=== PATIENT | female | born 1970 | race Caucasian/White ===

== ENCOUNTER 2017-12-19 09:26 | Emergency (ER) | payer BC ==
--- NOTE | 2017-12-19 12:31 | UC ---
Throat Pain/Nasal Kamlesh HPI - HPI Summary HPI Summary: 47 y/o female with h/o throat pain, getting worse, more severe over past 24 hours, + body ache, no N/V. febrile over weekend, no ear pain. + cough exposed to flu at work. no SOB - History of Current Complaint Chief Complaint: UCRespiratory Stated Complaint: ST Time Seen by Provider: 12/19/17 12:18 Hx Obtained From: Patient Hx Last Menstrual Period: n/a hysterectomy 01/19/16 ?: No Onset/Duration: Gradual Onset, Lasting Days Severity: Moderate - Allergies/Home Medications Allergies/Adverse Reactions: Allergies Allergy/AdvReac Type Severity Reaction Status Date / Time cefuroxime [From Ceftin] Allergy Severe Rash Verified 12/19/17 12:27 Penicillins Allergy Severe GI Upset Verified 12/19/17 12:27 Sulfa (Sulfonamide Allergy Intermediate GI Upset Verified 12/19/17 12:27 Antibiotics) Home Medications: Home Medications Abatacept* [Orencia*] 1 inj WEEKLY 12/19/17 [History Confirmed 12/19/17] Escitalopram Oxalate [Lexapro 20 mg] 20 mg PO DAILY 12/19/17 [History Confirmed 12/19/17] Estradiol TAB(NF) 1 tab DAILY 12/19/17 [History Confirmed 12/19/17] Levothyroxine TAB* [Synthroid 88 MCG TAB*] 88 mcg PO DAILY 12/19/17 [History Confirmed 12/19/17] clonazePAM TAB(*) [Klonopin TAB(*)] 1 mg PO BEDTIME PRN 12/19/17 [History Confirmed 12/19/17] traMADol TAB* [Ultram*] 50 mg PO Q6HR PRN 12/19/17 [History Confirmed 12/19/17] PMH/Surg Hx/FS Hx/Imm Hx Previously Healthy: Yes - Surgical History Surgical History: Yes Surgery Procedure, Year, and Place: Tubal ligation-1992. Hysterectomy 2015 - Family History Known Family History: Positive: Hypertension, Diabetes - Social History Alcohol Use: None Substance Use Type: None Smoking Status (MU): Former Smoker Type: Cigarettes Amount Used/How Often: 1/2 ppd Length of Time of Smoking/Using Tobacco: 5 years When Did the Patient Quit Smoking/Using Tobacco: 2014 Household Exposure Type: Cigarettes Review of Systems Constitutional: Fever, Chills, Fatigue ENT: Sore Throat, Sinus Congestion Respiratory: Cough Is Patient Immunocompromised?: No All Other Systems Reviewed And Are Negative: Yes Physical Exam Triage Information Reviewed: Yes Appearance: Well-Appearing, No Pain Distress, Ill-Appearing - mild Vital Signs Reviewed: Yes Eyes: Positive: Conjunctiva Clear ENT: Positive: Pharyngeal erythema - mild erythema, few exudates seen, TMs normal, Sinus tenderness - mild, Uvula midline. Negative: Nasal drainage, TM bulging, TM dull, TM red, Tonsillar swelling, Tonsillar exudate Neck: Positive: Supple, Tenderness @ - LAD, Enlarged Nodes @ - submand, tender Respiratory: Positive: Chest non-tender, Lungs clear, Normal breath sounds, No respiratory distress, No accessory muscle use. Negative: Crackles, Rhonchi, Stridor, Wheezing Cardiovascular: Positive: RRR, No Murmur, Pulses Normal Abdomen Description: Positive: Nontender, Soft Throat Pain/Nasal Course/Dx - Course Course Of Treatment: rapid flu negative, pharyngitis with possible sinusitis, follow up with PCP within 2-3 days if no improvement. - Differential Dx/Diagnosis Provider Diagnoses: pharyngitis Discharge - Discharge Plan Condition: Good Disposition: HOME Prescriptions: Azithromyxin ILAN (NF) [Z-Ilan (Zithromax) 250 mg tabs #6] 2 tab PO .TODAY, THEN 1 DAILY #6 tab Dextromethorphan/Benzocaine [Cepacol Sorethroat-Cough Bridget] 1 each PO Q4H #60 lozenge Patient Education Materials: Pharyngitis (ED) Referrals: Smiley Rizvi PA [Primary Care Provider] - Additional Instructions: - lozenges for sore throat - ANtibiotics as written - Follow up with primary within 2-3 days if no improvement - Increase fluid intake -
[2017-12-19 12:36] VITALS: BP 123/74
== END 2017-12-19 13:03 | disposition home or self-care (01) ==
LOC: UCCORT 09:26
DX: J02.9 Acute pharyngitis, unspecified (principal); Z87.891 Personal history of nicotine dependence
CPT/HCPCS: 87502; 99212; G0463

== ENCOUNTER 2018-05-08 12:44 | Emergency (ER) | payer BC ==
[2018-05-08 13:07] VITALS: BP 119/74
--- NOTE | 2018-05-08 13:23 | UC ---
Neck Pain HPI - HPI Summary HPI Summary: left side neck pain x 2 day pain is sever , radiating to left shoulder + numbness of left arm no known injury - History of Current Complaint Chief Complaint: UCGeneralIllness Stated Complaint: NECK AND SHOULDER PAIN Time Seen by Provider: 05/08/18 13:02 Hx Obtained From: Patient Hx Last Menstrual Period: n/a hysterectomy 01/19/16 ?: No Mechanism Of Injury: No Known Trauma Timing: Constant Onset/Duration: Gradual Onset, Lasting Days - 2, Still Present Severity: Severe Pain Intensity: 10 Location: Discrete At: - left side of neck Character: Aching, Stiff, Spasmotic Aggravating Factors: Position, Movement Alleviating Factors: Nothing Associated Signs & Symptoms: Positive: Paresthesia - left arm. Negative: Swelling, Redness, Bruising, Fever, Nuchal Rigity, Weakness, Headache - Allergies/Home Medications Allergies/Adverse Reactions: Allergies Allergy/AdvReac Type Severity Reaction Status Date / Time cefuroxime [From Ceftin] Allergy Severe Rash Verified 05/08/18 13:07 Penicillins Allergy Severe GI Upset Verified 05/08/18 13:07 Sulfa (Sulfonamide Allergy Intermediate GI Upset Verified 05/08/18 13:07 Antibiotics) Home Medications: Home Medications celeCOXIB CAP* [CeleBREX CAP*] 200 mg PO DAILY 05/08/18 [History Confirmed 05/08] PMH/Surg Hx/FS Hx/Imm Hx - Additional Past Medical History Additional PMH: RA Endocrine History: Hypothyroidism Psychological History: Anxiety - Surgical History Surgical History: Yes Surgery Procedure, Year, and Place: Tubal ligation-1992. Hysterectomy 2016 - Family History Known Family History: Positive: Hypertension, Diabetes - Social History Alcohol Use: None Substance Use Type: None Smoking Status (MU): Former Smoker Type: Cigarettes Amount Used/How Often: 1/2 ppd Length of Time of Smoking/Using Tobacco: 5 years When Did the Patient Quit Smoking/Using Tobacco: 2014 Household Exposure Type: Cigarettes Review Of Systems Constitutional: Positive: Negative Skin: Positive: Negative Eyes: Positive: Negative ENT: Positive: Negative Respiratory: Positive: Negative Musculoskeletal: Positive: Arthralgia Psychological: Positive: Negative All Other Systems Reviewed And Are Negative: Yes Physical Exam Triage Information Reviewed: Yes Appearance: Well-Appearing, Well-Nourished, Pain Distress Vital Signs: Initial Vital Signs Temp 98.6 F 07/03/18 13:03 Pulse 81 05/08/18 13:03 Resp 18 05/08/18 13:03 BP 119/74 05/08/18 13:03 Pulse Ox 98 05/08/18 13:03 Vital Signs Reviewed: Yes Eyes: Positive: Conjunctiva Clear ENT: Positive: Normal ENT inspection, Hearing grossly normal, Pharynx normal Neck: Positive: Tenderness @ - left side of necck, Other: - limited ROM with rotation Respiratory: Positive: Chest non-tender, Lungs clear, Normal breath sounds Cardiovascular: Positive: RRR, No Murmur, Pulses Normal Skin Exam: Normal Neck Pain Course/Dx - Differential Dx/Diagnosis Provider Diagnoses: Thoracic outlet syndrome Discharge - Sign-Out/Discharge Documenting (check all that apply): Discharge/Admit/Transfer - Discharge Plan Condition: Stable Disposition: HOME Prescriptions: Cyclobenzaprine TAB* [Flexeril 10 MG TAB*] 10 mg PO BID #20 tab predniSONE [Prednisone 20 MG TAB] 20 mg PO BID #10 tablet Patient Education Materials: Thoracic Outlet Syndrome (ED) Referrals: Smiley Rizvi PA [Primary Care Provider] - 7 Days - Billing Disposition and Condition Condition: STABLE Disposition: Home
== END 2018-05-08 13:24 | disposition home or self-care (01) ==
LOC: UCCORT 12:44
DX: G54.0 Brachial plexus disorders (principal); Z88.1 Allergy status to other antibiotic agents; Z88.0 Allergy status to penicillin; Z88.2 Allergy status to sulfonamides; Z87.891 Personal history of nicotine dependence; Z77.22 Contact with and (suspected) exposure to environmental tobacco smoke (acute) (chronic)
CPT/HCPCS: 99212; G0463

== ENCOUNTER 2018-10-11 05:43 | Inpatient (IN) | payer BC ==
[~2018-10-11 05:43] MED LIST: Buffered Lidocaine 0.9% SYRIN* 5 ML/SYR SYRINGE INTRADERM ONE; Vancomycin(*) 1,500 MG in NS 0.9% 250 ML* 250 ML IVPB SCH
--- OUTSIDE RECORDS SUMMARY | 2018-10-11 05:46 | XMS REPORT ---
:1970 External Reference #:[id number] Author Organization [facility] 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 Active Note: noted 1996 Onset: 07/19/2011 Idiopathic peripheral neuropathy Leonardo Decker PA Active Onset: 02/25/2015 Anxiety Smiley Rizvi RPAC Active Note: with panic Onset: 12/29/2015 ESR raised Smiley Rizvi RPAC Active Onset: 06/30/2016 Rheumatoid arthritis Smiley Rizvi RPAC Active Note: seronegative...tx 2015 Onset: 10/05/2016 Chondromalacia of patella Murtaza Nugent M.D. Active Onset: 10/06/2016 [facility] multiple joints Note: cervical spine, knee Onset: 04/17/2017 Adhesive capsulitis of shoulder Prabhu Yoder M.D. Active Note: right Onset: 06/28/2017 Knee pain Prabhu Yoder M.D. Active Onset: 07/11/[address] [facility] Active Onset: 10/02/2017 Knee joint effusion Jennifer Lowe PA Active Onset: 01/16/2018 Arthralgia of the pelvic region and Smiley Rizvi [facility] Active thigh Onset: 01/16/2018 Malaise and fatigue Smiley Rizvi 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[employer] Cigarette Use 12/2014 Quit ETOH Use Rarely consumes alcohol Smoking Patient is a former smoker 1ppd Daily Caffeine Current Caffeine User 1 cup coffee per day Allergies, Adverse Reactions, Alerts Date Description Reaction Status Severity Comments 08/07/2013 Sulfa Antibiotics Nausea and Vomiting active 07/19/2011 Penicillin as a child active nausea/vomiting 07/19/2011 Ceftin RASH active 06/04/2017 Hydroxychloroquine Dyspepsia active 10/19/2017 Adalimumab pruritis active 04/29/2018 Enbrel RASH active Medications Medication Date Status Form Strength Qnty SIG Indications Ordering Provider Work Note 09/03 Active Evaluated for acute gilbert Chen M.Andressa illness. Excuse for 2 days Oxycodone-Acetamin 07/17 Active Tablets 5-325mg 60tab 1 tab by M48.02 Najera, oph s mouth every Gustavo, 6 hours as M.D. needed for severe pain Celebrex 04/26 Active Capsules 200mg 1 cap by Yvonne mouth twice Jianghong a day , Buspirone HCL 04/20 Active Tablets 15mg 60tab take 1/2-1 s tablet by Gustavo mouth three M.D. times a day as needed for stress / anxiety Probiotic (OTC) 01/16 Active Capsules 30cap 1 by mouth s every day Diana Chen Orencia 12/07 Active Soln 125mg/ml SQ weekly Russell Prefill Rupali Taylor MD Escitalopram 07/11 Active Tablets 20mg 90tab 1 tab by Reinaldo, Oxalate s mouth daily Diana Chen Levothyroxine 10/17 Active Tablets 88mcg 90tab 1 by mouth Reinaldo, s every day Diana Chen Clonazepam 01/28 Active Tablets 1mg 30tab 1 tab by Reinaldo, s mouth twice Gustavo, a day as MMercedez needed for anxiety MDD 2 Vitamin C Active Tablets 1000mg 1 by mouth Unknown / every day Biotin Active Tablets 300mcg 1 tab by Unknown / mouth every day Vitamin D Active Capsules 2000Unit 1 by mouth Unknown /0000 every day Azithromycin 09/03 Hx Tablets 250mg 11tab 2 tabs by J01.90 Najera, s mouth Gustavo, - today, then M.DFrank 09/21 one tab by mouth daily Tramadol HCL 06/04 Hx Tablets 50mg 10tab 1 tablet by Ilya, s mouth every Gabby, - 24 hours as 07/17 needed pain Work Note 03/05 Hx may return Najera to a normal Gustavo - work M.D. 04/10 schedule, no restriction s Azithromycin 02/28 Hx Tablets 250mg 11tab 2 tabs by J20.9 Najera, s mouth Gustavo, - today, then M.D. 03/11 one tab by mouth daily Work Note 02/12 Hx Work Najera limitation. Gustavo - .. 35 M.D. 03/05 hours per week (7 hours per day) Apple Cider 01/16 Hx Tablets 450mg. 1 capsule Reinaldo Vinegar daily. Alvin Chen M.D. 04/10 Estradiol 01/16 Hx Tablets 2mg 90tab 1 by mouth N95.1 Reinaldo, s every day Alvin Chen M.D. 01/16 Estrace 01/16 Hx Tablets 2mg 90tab 1 tab by Reinaldo, s mouth every Gustavo, - day M.D. 04/10 Meloxicam 01/12 Hx Tablets 7.5mg 1 tablet by Yvonne, mouth bid Rupali Esquivel MD 04/29 Enbrel 11/06 Hx 50mg SQ Yvonne, weekly Rupali Esquivel MD 01/14 Azithromycin 11/01 Hx Tablets 250mg 11tab 2 tabs by J20.9 Reinaldo, s mouth Gustavo, - today, then M.D. 11/22 one tab by mouth daily Fayette 10/02 Hx Tablets 5-325mg 20tab 1 by mouth Paresh, s every 6 Prabhu, - hour as M.D. 10/19 needed pain Tramadol HCL 09/08 Hx Tablets 50mg 60tab 1-2 by Reinaldo, s mouth every Gustavo, - 6 hours as M.D. 06/14 needed pain :::: Reference #: [id number] Oxycodone HCL 09/01 Hx Tablets 10mg 30tab 1 by mouth Paresh, s every 4-6 Prabhu, hour as M.D. needed postop pain Estradiol 07/17 Hx Tablets 1mg 90tab 1 by mouth N95.1 Reinaldo, s every day Alvin ChenDFrank 01/16 Humira Pen 07/07 Hx PNKT 40mg/0.8M 40mg SQ q Yvonen L 2 wks, Rupali wilson MD 10/19 benadryl prior to injection due to flushing Estradiol 06/15 Hx Tablets 0.5mg 90tab 1 by mouth N95.1 Reinaldo, s every day Alvin Chen M.DFrank 07/17 Leflunomide 05/05 Hx Tablets 20mg 1 cap by Yvonne, mouth every Rupali polanco MD Zolpidem Tartrate 04/17 Hx Tablets 5mg 30tab 1 QHS prn Paresh, s Sleep Alvin Pelletier M.D. 05/25 Oxycodone HCL 03/22 Hx Tablets 5mg 40tab 1-2 every Paresh, s 4-6 hour as Prabhu, needed for M.D. pain Hydrocodone-Acetam 03/02 Hx Tablets 5-325mg 30tab 1 by mouth antelmo Nugent s every 6 Murtaza, - hours as M.D. 04/04 needed pain Hydroxychloroquine 01/27 Hx Tablets 200mg 1 by mouth Marlo Russell twice a day Rupali Esquivel MD 02/14 Duloxetine HCL 01/16 Hx Caps 60mg 60cap 1 cap by Lily7 Reinaldo, Part s mouth once jocelyn Chen M.D. day...taper ing 05/25/17 Diclofenac Sodium 01/16 Hx Gel 1% 100gm Apply 2 to M79.7 Reinlado, 4 grams to Gustavo, - affected M.D. 05/10 area times a day as needed Celecoxib 10/13 Hx Capsules 200mg 30cap take one M47.812 Estrada s capsule by Marbin Anderson, - mouth every DO 02/14 evening as needed for pain Metaxalone 10/13 Hx Tablets 800mg 60tab 1 tab by M62.838 Estrada, s mouth every Marbin Anderson, - 6-8 hour DO 05/10 for muscle /2016 spasm Methotrexate 09/07 Hx Tablets 2.5mg 8 tabs by Tomer, mouth per Isaac melo MD 03/01 Prednisone 09/07 Hx Tablets 5mg taper Tomer, Isaac Esquivel MD 10/05 Azithromycin 02/21 Hx Tablets 250mg 11tab 2 tabs by J20.9 Estrada, s mouth today Marbin Anderson, - then one DO 04/28 tab by mouth daily Cheratussin ac 02/21 Hx Syrup 100-10mg/ 236ml 1-2 J20.9 Estrada, 5ML teaspoons Marbin Anderson, - by mouth DO 04/28 every hour as needed cough Ibuprofen 11/23 Hx Tablets 800mg 1 by mouth every 8 - hours as 06/07 needed for pain Diclofenac Sodium 09/22 Hx Tablets 75mg 60tab take one M70.62 Estrada, s tablet by Marbin Anderson, - mouth twice DO 12/22 a day with food for joint pain Glucosamine 09/18 Hx Tablets 1000/800m Yahaira Dorado g Marbin Anderson, Complex Advanced - DO Plus MSM 12/22 Order 07/31 Hx Please Estrada allow Marbin Anderson, - smaller DO 08/04 nursing bag due to back and neck complaints Nabumetone 07/31 Hx Tablets 750mg 60tab take 2 M70.62 Estrada s tablets by Marbin Anderson, - mouth every DO 09/22 day with food for hip discomfort Azithromycin 06/19 Hx Tablets 250mg 11tab 2 tabs by 461.9 Estrada s mouth today Marbin Anderson, - then one DO 07/31 tab by mouth daily Gabapentin 05/26 Hx Capsules 100mg 60cap take 1 to 2 729.2 Estrada s capsules by Marbin Anderson, - mouth at DO 06/19 bedtime for hip pain Levothyroxine 04/26 Hx Tablets 100mcg 90tab 1 tab by Estrada s mouth every Marbin Anderson, - day DO 10/17 Buspirone HCL 01/13 Hx Tablets 5mg 30tab 2 tabs by Yasir s mouth bid Andras, - for anxiety M.D. 04/20 as needed Hydroxyzine HCL 12/25 Hx Tablets 50mg 30tab take 1 Kristie s tablet by Edith - amanda shrestha MD 03/02 night at bedtime as needed insomnia Clonazepam 12/25 Hx Tablets 1mg 30tab 1 tab by Estrada s mouth twice Marbin Anderson, - a day as DO 12/28 needed for anxiety Omeprazole 12/25 Hx Capsules 20mg 1 by mouth Kristie every day Edith Esquivel MD 12/22 Ondansetron HCL 12/23 Hx Tablets 4mg 10tab 1 tab every s 6hr as - needed 02/25 Ventolin HFA 01/16 Hx Aerosol 108mcg/Ac 36uni 1-2 puffs q Kristie t ts 4-6 hours Edith quispe MD 02/25 Sumatriptan 08/02 Hx Tablets 50mg 6tabs 1 tab by Kristie mouth prn Edith dozier MD 02/25 dose 2 hours later Levothyroxine 07/19 Hx Tablets 112mcg 90tab take one Kristie Sodium s tablet by Edith patel every MD Escitalopram 06/10 Hx Tablets 20mg 90tab one by Rosa Dorado s mouth daily Marbin Anderson, - DO 02/14 Probiotic Hx Capsules by mouth Unknown /0000 every day - 05/30 Fiber Hx Capsules 0.52gm by mouth Unknown /0000 every day - 06/19 Iron Hx Tablets 325(65Fe) 1 by mouth Unknown /0000 mg every day - 05/30 Meloxicam Hx Tablets 7.5mg take one- M25.511 Unknown /0000 two tablets - by mouth 06/30 as needed Folic Acid 00 Hx 1mg 1 tab daily Unknown /0000 - 04/17 Tylenol 8 Hour Hx 2 tabs by Unknown Arthritis Pain /0000 mouth as - needed 10/19 [employer] / Hx daily Unknown /0000 - 06/28 Diclofenac Sodium Hx Tablets 50mg take 1 M25.511 Tomer, /0000 tablet by Isaac patel tikat RAYMUNDO 07/29 Mobic Hx Tablets 15mg 1 by mouth M47.812 Unknown /0000 qhs - 10/13 Leflunomide Hx Tablets 20mg 1 by mouth Unknown /0000 every day - 04/04 Hydroxychloroquine 00 Hx Tablets 200mg Unknown Sulfate / - 03/15 Methotrexate / Hx Tablets 2.5mg Unknown / - 03/15 Meloxicam Hx Tablets 7.5mg Unknown / - 03/15 Escitalopram Hx Tablets 20mg Unknown Oxalate / - 03/15 Afluria Hx Christine 0.5ml Unknown Preservative Free / - 04/04 Levothyroxine 00/ Hx Tablets 100mcg Unknown Sodium / - 03/15 Diclofenac Sodium Hx Tablets 50mg Unknown /0000 DR - 03/15 Cyclobenzaprine 00/00 Hx Tablets 10mg Unknown HCL / - 03/15 Naproxen 00/00 Hx Tablets 500mg take 1 Unknown /0000 tablet by - mouth twice 03/15 a day if /2017 needed for pain Methotrexate 00/00 Hx Tablets 2.5mg Unknown / - 04/17 Hydroxychloroquine 00/00 Hx Tablets 200mg Unknown Sulfate / - 04/17 Celecoxib 00/00 Hx Capsules 200mg Unknown - 04/17 Meloxicam 00/00 Hx Tablets 7.5mg Unknown / - 04/17 Escitalopram 00/00 Hx Tablets 20mg Unknown Oxalate / - 04/17 Afluria Hx Christine 0.5ml Unknown Preservative Free /05/10 Levothyroxine 00/00 Hx Tablets 100mcg Unknown Sodium / - 04/17 Diclofenac Sodium 00/00 Hx Tablets 50mg Unknown /0000 DR - 04/17 Cyclobenzaprine 00/00 Hx Tablets 10mg Unknown HCL / - 04/17 Folic Acid 00 Hx Tablets 1mg Jeff, /0000 Isaac Esquivel MD 05/10 Hydroxychloroquine 00/00 Hx Tablets 200mg Unknown Sulfate /05/10 Methotrexate /00 Hx Tablets 2.5mg Unknown 05/10 Celecoxib 00/ Hx Capsules 200mg Unknown 05/10 Meloxicam 00/00 Hx Tablets 7.5mg Unknown 05/10 Escitalopram 00/00 Hx Tablets 20mg Unknown Oxalate /05/10 Levothyroxine 00/00 Hx Tablets 100mcg Unknown Sodium /05/10 Diclofenac Sodium 00/00 Hx Tablets 50mg take 1 Unknown /0000 DR tablet by - mouth three 05/10 times a day /2016 Cyclobenzaprine 00/00 Hx Tablets 10mg take 1 Unknown HCL /0000 tablet by - mouth 05/10 Nightly /2016 Ambien 00/00 Hx Tablets 5mg take one Unknown /0000 tab by mouth at night as needed as needed insomnia Vitamin E 00/ Hx Capsules 1 tab by Unknown /0000 mouth once - daily 10/19 Milk Thistle / Hx Capsules Unknown / - 01/16 Prednisone 00/00 Hx Tablets 20mg Zarrini, /0000 Gio, - 05/24 Cyclobenzaprine Hx Tablets 10mg 30tab 1 by mouth Zarrini, HCL /0000 s three times Gio, - a day as 06/01 muscle spasms Medications Administered in Office Medication Date Status Form Strength Qnty SIG Indications Ordering Provider Euflexxa 2mL 11/02 Administered Injection Mynor, prefilled syringe WENCESLAO Rodriguez Euflexxa 2mL 10/26 Administered Injection Mynor, prefilled syringe JenniferWENCESLAO spivey Euflexxa 2mL 10/19 Administered Injection Mynor, prefilled syringe WENCESLAO Rodriguez Methylprednisolone 10/02 Administered Injection Mynor acetate WENCESLAO Rodriguez (Depomedrol) 80mg injection Depo-Medrol 20mg 06/28 Administered Injection Paresh Diana Pelletier Methylprednisolone 07/29 Administered Injection Alyssa acetate Mita (Depomedrol) 80mg S., RPAC injection Methylprednisolone 06/08 Administered Injection Shah, acetate Mita (Depomedrol) 80mg S., RPAC injection Immunizations CPT Code Status Date Vaccine Lot # [id number] Given 07/31/2015 Influenza Vaccine (Fluzone) Age 3 And Older [id number] Given 08/07/2013 flu vaccination [id number] Given 11/15/2009 DTaP Vaccine Younger Than 7 Vital Signs Date Vital Result Comment 09/21/2018 BP Systolic 137 mmHg BP Diastolic 75 mmHg Body Temperature 96.9 F Heart Rate 65 /min Respiratory Rate 18 /min Weight 214.25 lb O2 % BldC Oximetry 96 % 09/03/2018 BP Systolic 113 mmHg BP Diastolic 77 mmHg Body Temperature 97.5 F Heart Rate 73 /min Respiratory Rate 18 /min Weight 213.25 lb O2 % BldC Oximetry 97 % 07/17/2018 BP Systolic 128 mmHg BP Diastolic 74 mmHg Heart Rate 69 /min Respiratory Rate 18 /min Weight 211.38 lb O2 % BldC Oximetry 97 % %A Pain Level 8 neck 06/19/2018 BP Systolic Sitting Right Arm 113 mmHg BP Diastolic Sitting Right Arm 77 mmHg Body Temperature 97.7 F Heart Rate 96 /min Respiratory Rate 16 /min Height 67 inches 5'7" Weight 209.00 lb BMI (Body Mass Index) 32.7 kg/m2 BSA (Body Surface Area) 2.06 m2 Sieper body weight in kilograms 61 O2 % BldC Oximetry 98 % Ra 06/14/2018 BP Systolic Sitting Left Arm 126 mmHg BP Diastolic Sitting Left Arm 78 mmHg Body Temperature 97.3 F Height 67 inches 5'7" Weight 209.00 lb BMI (Body Mass Index) 32.7 kg/m2 BSA (Body Surface Area) 2.06 m2 Sieper body weight in kilograms 61 06/01/2018 BP Systolic Sitting Left Arm 104 mmHg BP Diastolic Sitting Left Arm 71 mmHg Body Temperature 97.6 F Heart Rate 85 /min Respiratory Rate 17 /min Height 67 inches 5'7" Weight 211.00 lb BMI (Body Mass Index) 33.0 kg/m2 BSA (Body Surface Area) 2.07 m2 Sieper body weight in kilograms 61 O2 % BldC Oximetry 97 % 05/24/2018 BP Systolic Sitting Left Arm 119 mmHg BP Diastolic Sitting Left Arm 87 mmHg Body Temperature 97.5 F Heart Rate 95 /min Respiratory Rate 17 /min Height 67 inches 5'7" Weight 206.00 lb BMI (Body Mass Index) 32.3 kg/m2 BSA (Body Surface Area) 2.05 m2 Sieper body weight in kilograms 61 O2 % BldC Oximetry 98 % 05/10/2018 BP Systolic Sitting Left Arm 103 mmHg BP Diastolic Sitting Left Arm 73 mmHg Body Temperature 98.0 F Heart Rate 74 /min Respiratory Rate 17 /min Height 67 inches 5'7" Weight 206.00 lb BMI (Body Mass Index) 32.3 kg/m2 BSA (Body Surface Area) 2.05 m2 Sieper body weight in kilograms 61 O2 % BldC Oximetry 97 % 04/10/2018 BP Systolic Sitting Right Arm 102 mmHg BP Diastolic Sitting Right Arm 68 mmHg Body Temperature 97.0 F Heart Rate 66 /min reg Respiratory Rate 20 /min Height 67 inches 5'7" Weight 202.00 lb BMI (Body Mass Index) 31.6 kg/m2 BSA (Body Surface Area) 2.03 m2 Sieper body weight in kilograms 61 O2 % BldC Oximetry 98 % ra 01/16/2018 BP Systolic Sitting Left Arm 102 mmHg BP Diastolic Sitting Left Arm 58 mmHg Heart Rate 75 /min Height 67 inches 5'7" Weight 204.00 lb BMI (Body Mass Index) 31.9 kg/m2 BSA (Body Surface Area) 2.04 m2 Sieper body weight in kilograms 61 O2 % BldC Oximetry 98 % ra 11/02/2017 BP Systolic Sitting Right Arm 102 mmHg BP Diastolic Sitting Right Arm 70 mmHg Heart Rate 81 /min Height 67 inches 5'7" Weight 202.00 lb BMI (Body Mass Index) 31.6 kg/m2 BSA (Body Surface Area) 2.03 m2 Sieper body weight in kilograms 61 11/01/2017 BP Systolic Sitting Right Arm 102 mmHg BP Diastolic Sitting Right Arm 64 mmHg Body Temperature 96.6 F Heart Rate 77 /min Height 67 inches 5'7" Weight 202.00 lb BMI (Body Mass Index) 31.6 kg/m2 BSA (Body Surface Area) 2.03 m2 Sieper body weight in kilograms 61 O2 % BldC Oximetry 98 % ra 10/26/2017 BP Systolic Sitting Left Arm 114 mmHg BP Diastolic Sitting Left Arm 73 mmHg Body Temperature 97.4 F Heart Rate 81 /min Respiratory Rate 20 /min Height 67 inches 5'7" Weight 200.00 lb BMI (Body Mass Index) 31.3 kg/m2 BSA (Body Surface Area) 2.02 m2 Sieper body weight in kilograms 61 10/16/2017 BP Systolic 110 mmHg BP Diastolic 72 mmHg Heart Rate 82 /min 09/14/2017 BP Systolic Sitting Right Arm 113 mmHg BP Diastolic Sitting Right Arm 73 mmHg Body Temperature 98.0 F Heart Rate 86 /min Weight 197.00 lb 07/17/2017 BP Systolic Sitting Left Arm 110 mmHg BP Diastolic Sitting Left Arm 68 mmHg Heart Rate 66 /min Weight 192.00 lb O2 % BldC Oximetry 98 % 06/28/2017 BP Systolic Sitting Left Arm 102 mmHg BP Diastolic Sitting Left Arm 72 mmHg Heart Rate 87 /min 06/15/2017 BP Systolic Sitting Left Arm 110 mmHg BP Diastolic Sitting Left Arm 76 mmHg Body Temperature 96.7 F Heart Rate 70 /min Respiratory Rate 16 /min Height 67.5 inches 5'7.50" Weight 191.00 lb BMI (Body Mass Index) 29.5 kg/m2 BSA (Body Surface Area) 1.99 m2 Sieper body weight in kilograms 62 O2 % BldC Oximetry 98 % 05/24/2017 BP Systolic Sitting Right Arm 105 mmHg BP Diastolic Sitting Right Arm 71 mmHg Heart Rate 72 /min Height 67.5 inches 5'7.50" Weight 190.00 lb BMI (Body Mass Index) 29.3 kg/m2 BSA (Body Surface Area) 1.99 m2 Sieper body weight in kilograms 62 05/10/2017 BP Systolic Sitting Right Arm 113 mmHg BP Diastolic Sitting Right Arm 74 mmHg Heart Rate 79 /min Height 6.5 inches 0'6.50" Weight 190.00 lb BMI (Body Mass Index) 3161.4 kg/m2 BSA (Body Surface Area) 0.36 m2 Sieper body weight in kilograms 45 04/04/2017 BP Systolic Sitting Right Arm 124 mmHg BP Diastolic Sitting Right Arm 68 mmHg Height 66.5 inches 5'6.50" Weight 189.25 lb BMI (Body Mass Index) 30.1 kg/m2 BSA (Body Surface Area) 1.96 m2 Sieper body weight in kilograms 60 03/15/2017 BP Systolic 101 mmHg BP Diastolic 67 mmHg Body Temperature 95.3 F Heart Rate 74 /min Height 66.5 inches 5'6.50" Weight 191.00 lb BMI (Body Mass Index) 30.4 kg/m2 BSA (Body Surface Area) 1.97 m2 Sieper body weight in kilograms 60 03/02/2017 BP Systolic Sitting Left Arm 114 mmHg BP Diastolic Sitting Left Arm 78 mmHg Height 67.5 inches 5'7.50" Weight 200.00 lb BMI (Body Mass Index) 30.9 kg/m2 BSA (Body Surface Area) 2.03 m2 Sieper body weight in kilograms 62 01/16/2017 BP Systolic Sitting Right Arm 122 mmHg BP Diastolic Sitting Right Arm 72 mmHg Height 67.50 inches 5'7.50" Weight 201.00 lb BMI (Body Mass Index) 31.0 kg/m2 BSA (Body Surface Area) 2.04 m2 12/16/2016 BP Systolic Sitting Right Arm 122 mmHg BP Diastolic Sitting Right Arm 66 mmHg Height 67.50 inches 5'7.50" Weight 198.25 lb BMI (Body Mass Index) 30.6 kg/m2 BSA (Body Surface Area) 2.03 m2 10/13/2016 BP Systolic Sitting Right Arm 124 mmHg BP Diastolic Sitting Right Arm 70 mmHg Height 67.50 inches 5'7.50" Weight 202.25 lb BMI (Body Mass Index) 31.2 kg/m2 BSA (Body Surface Area) 2.04 m2 06/08/2016 BP Systolic 107 mmHg BP Diastolic 70 mmHg Heart Rate 78 /min Height 67.50 inches 5'7.50" Weight 205.00 lb BMI (Body Mass Index) 31.6 kg/m2 BSA (Body Surface Area) 2.05 m2 Sieper body weight in kilograms 62 05/30/2016 BP Systolic 120 mmHg BP Diastolic 72 mmHg Height 69 inches 5'9" Weight 207.50 lb BMI (Body Mass Index) 30.6 kg/m2 BSA (Body Surface Area) 2.10 m2 02/22/2016 BP Systolic 110 mmHg BP Diastolic 70 mmHg Body Temperature 97.8 F Heart Rate 82 /min Respiratory Rate 16 /min Height 69 inches 5'9" Weight 198.00 lb BMI (Body Mass Index) 29.2 kg/m2 BSA (Body Surface Area) 2.06 m2 O2 % BldC Oximetry 98 % 12/22/2015 BP Systolic Sitting Left Arm 130 mmHg BP Diastolic Sitting Left Arm 70 mmHg Body Temperature 98.7 F Heart Rate 108 /min Height 69 inches 5'9" Weight 196.50 lb BMI (Body Mass Index) 29.0 kg/m2 BSA (Body Surface Area) 2.05 m2 O2 % BldC Oximetry 94 % 09/18/2015 BP Systolic 124 mmHg BP Diastolic 68 mmHg Weight 190.00 lb 07/31/2015 BP Systolic 110 mmHg BP Diastolic 68 mmHg Weight 186.38 lb 06/19/2015 Body Temperature 97.3 F 06/19/2015 BP Systolic 102 mmHg BP Diastolic 68 mmHg Height 68 inches 5'8" Weight 177.12 lb BMI (Body Mass Index) 26.9 kg/m2 BSA (Body Surface Area) 1.94 m2 05/26/2015 BP Systolic 98 mmHg BP Diastolic 58 mmHg Heart Rate 79 /min Height 68 inches 5'8" Weight 179.00 lb BMI (Body Mass Index) 27.2 kg/m2 BSA (Body Surface Area) 1.95 m2 O2 % BldC Oximetry 98 % 03/02/2015 Heart Rate 82 /min Height 68 inches 5'8" Weight 170.00 lb BMI (Body Mass Index) 25.8 kg/m2 BSA (Body Surface Area) 1.91 m2 01/13/2015 BP Systolic 118 mmHg BP Diastolic 68 mmHg Heart Rate 68 /min Height 67.5 inches 5'7.50" Weight 160.00 lb 12/25/2014 BP Systolic 132 mmHg BP Diastolic 80 mmHg Height 67.5 inches 5'7.50" Weight 137.00 lb 10/14/2014 BP Systolic 110 mmHg BP Diastolic 60 mmHg Body Temperature 98.4 F Heart Rate 84 /min Height 67.5 inches 5'7.50" Weight 163.00 lb 10/06/2014 BP Systolic 118 mmHg BP Diastolic 66 mmHg Body Temperature 97.7 F Height 67.5 inches 5'7.50" Weight 162.00 lb 06/05/2014 BP Systolic 100 mmHg BP Diastolic 70 mmHg Heart Rate 88 /min Height 67.5 inches 5'7.50" Weight 163.00 lb 01/16/2014 BP Systolic 120 mmHg BP Diastolic 78 mmHg Body Temperature 99.3 F Heart Rate 80 /min Height 67.5 inches 5'7.50" Weight 160.00 lb 08/07/2013 BP Systolic 118 mmHg BP Diastolic 72 mmHg Height 67.5 inches 5'7.50" Weight 161.00 lb 07/23/2013 BP Systolic 118 mmHg BP Diastolic 70 mmHg Height 67 inches 5'7" Weight 159.00 lb 01/21/2013 BP Systolic 118 mmHg BP Diastolic 76 mmHg Body Temperature 99.0 F Height 67.5 inches 5'7.50" Weight 166.00 lb 05/21/2012 BP Systolic 118 mmHg BP Diastolic 70 mmHg Body Temperature 98.4 F Height 68 inches 5'8" Weight 165.00 lb 05/14/2012 BP Systolic 118 mmHg BP Diastolic 72 mmHg Body Temperature 98.2 F Height 68 inches 5'8" Weight 159.00 lb 04/04/2012 BP Systolic 118 mmHg BP Diastolic 72 mmHg Height 68 inches 5'8" Weight 161.00 lb 02/08/2012 BP Systolic 110 mmHg BP Diastolic 64 mmHg Body Temperature 100.0 F Height 67 inches 5'7" Weight 161.00 lb O2 % BldC Oximetry 98 % on rm air 09/02/2011 BP Systolic 112 mmHg BP Diastolic 68 mmHg 09/02/2011 BP Systolic 112 mmHg BP Diastolic 68 mmHg Body Temperature 97.4 F Height 67 inches 5'7" Weight 158.00 lb 07/19/2011 BP Systolic 104 mmHg BP Diastolic 68 mmHg Heart Rate 74 /min Height 67 inches 5'7" Weight 159.00 lb Results Test Date Test Result H/L Range Note CBS W/Automated Diff 06/06/2018 White Blood Count 6.2 K/uL 3.1-10.7 1 Red Blood Count 5.10 M/uL 3.90-5.40 1 Hemoglobin 13.8 gm/dL 11.6-15.8 1 Hematocrit 41.8 % 36.0-46.1 1 Mean Cell Volume 82.0 fl 80.9-99.0 1 Mean Corpuscular HGB 27.1 pg 25.9-32.7 1 Mean Corpuscular HGB Conc 33.0 g/dL 30.8-34.3 1 Platelet Count 320 K/uL 155-360 1 Red Cell Distri Width SD 43.1 fl 3-47 1 Red Cell Distri Width %CV 14.6 % High 11.7-14.4 1 Mean Platelet Volume 10.4 fL 8.9-12.4 1 Neut% 53.0 % 40.4-72.8 1 Lymph % 38.0 % 20.0-42.0 1 [place] % 7.1 % 4.3-13.2 1 Eo% 1.6 % 0.0-6.6 1 Bas% 0.3 % 0.0-1.1 1 Neut# 3.30 K/uL 1.8-7.0 1 Lymph # 2.37 K/uL 1.0-4.0 1 [place] # 0.44 K/uL 0.3-0.9 1 Eos # 0.10 K/uL 0.0-0.5 1 Baso # 0.02 K/uL 0.0-0.1 1 Laboratory test finding 06/06/2018 C-Reactive Protein,Quant 18.4 mg/L High <3.0 1 Sedimentation Rate 34 mm/hr High 0-20 1, 2 [facility] Comprehensive 01/31/2018 Ebv Capsid Ag IgG Ab Positive Negative Ebv Capsid Ag IgM Ab Equivocal Negative [facility] Nuclear Antigen Positive Negative [facility] Virus Interp See Comment 3 Rapid Influenza A & B 12/19/2017 Influenza A Molecular NEGATIVE Negative 4 Molecular Influenza B Molecular NEGATIVE Negative TSH Reflex FT4 And/Or FT3 11/01/2017 Thyroid Stim Hormone 2.43 uIU/mL 0.30-4.20 5 Reflex add FT3? Y 5 Reflex add FT4? Y 5 Comprehensive Metabolic Panel 11/01/2017 Glucose 99 mg/dL 74-106 5 BUN 11 mg/dL 7-18 5 Creatinine 0.8 mg/dL 0.6-1.3 5 Glom Filtration Rate, Estimate >60 mL/min >60 5 If >60 mL/min >60 5, 6 BUN/Creat 13.7 ratio 5 Sodium 138 mmol/L 136-145 5 Potassium 4.5 mmol/L 3.5-5.1 5 Chloride 105 mmol/L 98-107 5 Carbon Dioxide 26 mmol/L 21-32 5 Anion Gap 7 mEq/L Low 8-16 5 Calcium 9.1 mg/dL 8.5-10.1 5 Total Protein 7.7 g/dL 6.4-8.2 5 Albumin 3.7 g/dL 3.4-5.0 5 Globulin 4.0 g/dL 1.9-4.3 5 Alb/Glob 0.9 ratio 5 Bilirubin,Total 0.3 mg/dL 0.2-1.0 5 Sgot/Ast 12 U/L Low 15-37 5, 7 SGPT/Alt 15 U/L 12-78 5 Alkaline Phosphatase 77 U/L 45-117 5 Reflex add FT3? Y 5 Reflex add FT4? Y 5 CBS W/Automated Diff 11/01/2017 White Blood Count 5.2 K/uL 3.1-10.7 5 Red Blood Count 5.06 M/uL 3.90-5.40 5 Hemoglobin 13.9 gm/dL 11.6-15.8 5 Hematocrit 42.2 % 36.0-46.1 5 Mean Cell Volume 83.4 fl 80.9-99.0 5 Mean Corpuscular HGB 27.5 pg 25.9-32.7 5 Mean Corpuscular HGB Conc 32.9 g/dL 30.8-34.3 5 Platelet Count 251 K/uL 155-360 5 Red Cell Distri Width SD 43.1 fl 3-47 5 Red Cell Distri Width %CV 14.4 % 11.7-14.4 5 Mean Platelet Volume 11.8 fL 8.9-12.4 5 Neut% 55.7 % 40.4-72.8 5 Lymph % 33.1 % 20.0-42.0 5 [place] % 8.1 % 4.3-13.2 5 Eo% 2.5 % 0.0-6.6 5 Bas% 0.6 % 0.0-1.1 5 Neut# 2.87 K/uL 1.8-7.0 5 Lymph # 1.71 K/uL 1.0-4.0 5 [place] # 0.42 K/uL 0.3-0.9 5 Eos # 0.13 K/uL 0.0-0.5 5 Baso # 0.03 K/uL 0.0-0.1 5 Laboratory test finding 04/04/2017 FSH 73.9 mIU/mL 8, 9 CBS W/Automated Diff 04/04/2017 White Blood Count 6.0 K/uL 3.1-10.7 8 Red Blood Count 4.79 M/uL 3.90-5.40 8 Hemoglobin 13.3 gm/dL 11.6-15.8 8 Hematocrit 40.6 % 36.0-46.1 8 Mean Cell Volume 84.8 fl 80.9-99.0 8 Mean Corpuscular HGB 27.8 pg 25.9-32.7 8 Mean Corpuscular HGB Conc 32.8 g/dL 30.8-34.3 8 Platelet Count 264 K/uL 150-400 8 Red Cell Distri Width SD 45.3 fl 3-47 8 Red Cell Distri Width %CV 14.9 % High 11.7-14.4 8 Mean Platelet Volume 11.4 fL 8.9-12.4 8 Neut% 58.1 % 40.4-72.8 8 Lymph % 29.0 % 20.0-42.0 8 [place] % 11.3 % 4.3-13.2 8 Eo% 1.3 % 0.0-6.6 8 Bas% 0.3 % 0.0-1.1 8 Neut# 3.48 K/uL 1.8-7.0 8 Lymph # 1.74 K/uL 1.0-4.0 8 [place] # 0.68 K/uL 0.3-0.9 8 Eos # 0.08 K/uL 0.0-0.5 8 Baso # 0.02 K/uL 0.0-0.1 8 Laboratory test finding 12/16/2016 Thyroid Stim Hormone 0.70 uIU/mL 0.30- 4.20 10 TSH Reflex FT4 And/Or 10/13/2016 Thyroid Stim Hormone 0.13 uIU/mL Low 0.30 -4.20 FT3 Reflex add FT3? Y Reflex add FT4? Y Free T3 10/13/2016 Free T3 2.88 pg/mL 2.18-3.98 Reflex add FT3? Y Reflex add FT4? Y Free T4 10/13/2016 Free T4 1.33 ng/dL 0.76-1.46 Reflex add FT3? Y Reflex add FT4? Y CBC 01/20/2016 White Blood Count 8.7 K/uL 3.1-10.7 Red Blood Count 4.23 M/uL 3.90-5.40 Hemoglobin 11.0 gm/dL Low 11.6-15.8 Hematocrit 34.5 % Low 36.0-46.1 Mean Cell Volume 81.6 fl 80.9-99.0 Mean Corpuscular HGB 26.0 pg 25.9-32.7 Mean Corpuscular HGB Conc 31.9 g/dL 30.8-34.3 Platelet Count 222 K/uL 155-360 Red Cell Distri Width %CV 14.9 % High 11.7-14.4 Mean Platelet Volume 10.2 fL 8.9-12.4 Laboratory test 01/19/2016 Uterus W/Wo See Note 11 finding FT/Ovary-Fibroid Laboratory test 01/19/2016 HCG, Quant 1.0 mIU/mL 12 finding Laboratory test 01/13/2016 TSH Reflex FT4 and/or FT3 1.45 uIU/mL 0.36- 3.74 13 finding Laboratory test 12/02/2015 Urine HCG (Qualitative) NEGATIVE Negative 14 finding Laboratory test 09/18/2015 C-Reactive Protein,Quant 11.2 mg/L High <3.0 finding Lyme Igg & Igm By 09/18/2015 Lyme AB Igg By Western . Western Blot Blot P93 AB Absent . P66 AB Absent . P58 AB Absent . P45 AB Absent . P41 AB Absent . P39 AB Absent . P30 AB Absent . P28 AB Absent . P23 AB Absent . P18 AB Absent . Lyme Igg WB Interpretation Negative . 15 Lyme AB Igm By Western Blot . P41 AB Present High . P39 AB Absent . P23 AB Absent . Lyme Igm WB Interpretation Negative . 16 CBC W/Automated Diff 09/18/2015 White Blood Count 7.1 K/uL 3.1-10.7 Red Blood Count 4.31 M/uL 3.90-5.40 Hemoglobin 12.2 gm/dL 11.6-15.8 Hematocrit 37.3 % 36.0-46.1 Mean Cell Volume 86.5 fl 80.9-99.0 Mean Corpuscular HGB 28.3 pg 25.9-32.7 Mean Corpuscular HGB Conc 32.7 g/dL 30.8-34.3 Platelet Count 281 K/uL 155-360 Red Cell Distri Width SD 44.0 fl 3-47 Red Cell Distri Width %CV 14.2 % 11.7-14.4 Mean Platelet Volume 10.7 fL 8.9-12.4 Neut% 58.3 % 40.4-72.8 Lymph % 33.7 % 17.0-46.1 [place] % 6.1 % 4.3-13.2 Eo% 1.3 % 0.0-6.6 Bas% 0.6 % 0.0-1.1 Neut# 4.14 K/uL 1.0-7.0 Lymph # 2.39 K/uL 1.8-7.0 [place] # 0.43 K/uL 0.3-0.9 Eos # 0.09 K/uL 0.0-0.5 Baso # 0.04 K/uL 0.0-0.1 Laboratory test finding 09/18/2015 Uric Acid 3.4 mg/dL 2.6-6.0 Calcium 9.2 mg/dL 8.5-10.1 Total Protein 7.6 g/dL 6.4-8.2 Albumin 4.0 g/dL 3.4-5.0 Globulin 3.6 g/dL 1.9-4.3 Alb/Glob 1.1 ratio Alkaline Phosphatase 61 U/L 45-117 Rheumatoid Factor Screen < 10.0 IU/mL 0.0-15.0 Sedimentation Rate 44 mm/hr High 0-20 Antinuclear Antibodies, Ifa Negative . 17 Laboratory test finding 08/03/2015 TSH Reflex FT4 and/or 0.56 uIU/mL 0.36 -3.74 18 FT3 Laboratory test finding 04/21/2015 Thyroid Stim Hormone 0.28 uIU/mL Low 0.36-3.74 19 Urine Screen 12/23/2014 Urine Bilirubin - Negative Negative Dipstick Urine Blood Negative Negative Urine Clarity Clear Clear Urine Color Straw Yellow Urine Glucose - Dipstick Negative mg/dL Negative Urine Ketone 15 mg/dL High Negative Urine Leuk Esterase Negative Negative Urine Nitrite - Dipstick Negative Negative Urine PH 6.0 Low 6.5-7.5 Urine Protein - Dipstick Negative mg/dL Negative Urine Specific [place] <=1.005 Low 1.010-1.030 Urine Urobilinogen - Dipstick 0.2 E.U./dL 0.2-1.0 Laboratory test finding 12/23/2014 Bas% 0.5 % 0.0-1.1 Baso # 0.04 K/uL 0.0-0.1 Eo% 0.1 % 0.0-6.6 Eos # 0.01 K/uL 0.0-0.5 HCG,Serum(Qualitative) Negative (Negative) Hematocrit 44.5 % 36.0-46.1 Hemoglobin 15.0 gm/dL 11.6-15.8 Lipase 69 U/L Low 73-393 Lymph # 1.28 K/uL 0.8-3.4 Lymph % 14.9 % Low 17.0-46.1 Mean Cell Volume 84.0 fl 80.9-99.0 Mean Corpuscular HGB 28.3 pg 25.9-32.7 Mean Corpuscular HGB Conc 33.7 g/dL 30.8-34.3 Mean Platelet Volume 10.9 fL 8.9-12.4 [place] # 0.56 K/uL 0.3-0.9 [place] % 6.5 % 4.3-13.2 Neut# 6.72 K/uL 1.0-7.0 Neut% 78.0 % High 40.4-72.8 Platelet Count 195 K/uL 155-360 Red Blood Count 5.30 M/uL 3.90-5.40 Red Cell Distri Width %CV 14.2 % 11.7-14.4 Red Cell Distri Width SD 43.5 fl 3-47 White Blood Count 8.6 K/uL 3.1-10.7 Basic Metabolic Panel 12/23/2014 Anion Gap 12 mEq/L 8-16 BUN 7 mg/dL 7-18 BUN/Creat 7.7 ratio Calcium 9.4 mg/dL 8.5-10.1 Carbon Dioxide 22 mmol/L 21-32 Chloride 107 mmol/L 98-107 Creatinine 0.9 mg/dL 0.6-1.3 Glom Filtration Rate, Estimate >60 mL/min >60 Glucose 108 mg/dL High 74-106 If >60 mL/min >60 20 Potassium 3.8 mmol/L 3.5-5.1 Sodium 137 mmol/L 136-145 Liver Function Tests 12/23/2014 Alb/Glob 1.4 ratio Albumin 4.5 g/dL 3.4-5.0 Alkaline Phosphatase 54 U/L 45-117 Bilirubin,Direct 0.1 mg/dL 0.0-0.2 Bilirubin,Indirect 0.6 mg/dL 0.0-0.9 Bilirubin,Total 0.7 mg/dL 0.2-1.0 Globulin 3.2 g/dL 1.9-4.3 SGPT/Alt 10 U/L Low 12-78 21 Sgot/Ast 7 U/L Low 15-37 22 Total Protein 7.7 g/dL 6.4-8.2 Stool Culture 10/07/2014 Shiga Toxin 1 Antigen See Note 23 Shiga Toxin 2 Antigen See Note 24 Stool Culture See Note 25 Laboratory test finding 10/07/2014 Cryptosporidium by Dfa See Note 26 Giardia by Dfa See Note 27 Parasite Concentrate Exam See Note 28 Permanent Trichrome Stain See Note 29 Laboratory test finding 10/06/2014 Antigliadin Abs, IgA 2 units 0-19 30 Antigliadin Abs, IgG 7 units 0-19 31 Endomysial IgA Antibody Negative Negative Immunoglobulin A 176 mg/dL 91-414 t-Transglutaminase IgA <2 U/mL 0-3 32 t-Transglutaminase IgG <2 U/mL 0-5 33 Laboratory test finding 10/10/2013 Free T4 1.17 ng/mL 0.61-1.24 TSH (Thyroid Stimulating Horm) 1.29 miu/mL 0.34-5.60 GC / Chlamydia 04/04/2012 Chlamydia Negative GC Negative 34 Laboratory test finding 04/04/2012 Cytology Pap See Note 35 CBC With Manual Diff 07/19/2011 Absolute Neutrophil Count 4.2 Eosinophil 1 % 0-6 Hematocrit 42 % 35-47 Hemoglobin 14.4 g/dL 12.0-16.0 Lymphocyte 30 % 25-47 Mean Corpuscular HGB Cone 35 g/dL 32-36 Mean Corpuscular Hemoglob 29 pg 27-31 Mean Corpuscular Volume 84 um3 79-97 Mean Platelet Volume 9.7 um3 7.4-10.4 Monocyte 9 % 0-13 Platelet Count 207 CUMM 150-450 Polysegmented Neutrophil 60 % 38-83 RBC Morphology Normal Red Cell Count 4.95 CUMM 4.2-5.4 Redcell Distribution WDTH 14 % 10.5-15 White Blood Count 7.0 CUMM 4.8-10.8 Basic Metabolic Panel 07/19/2011 Anion Gap 5.0 mmol/L 2-11 36 BUN 9 mg/dL 6-24 BUN/Creatinine Ratio 10.0 8-20 Calcium 9.4 mg/dL 8.1-9.9 Chloride 105 mmol/L 101-111 Co2 (Carbon Dioxide) 27.0 mmol/L 22-32 Creatinine 0.9 mg/dL 0.50-1.40 Glucose 99 mg/dL 70-100 One Over Creatinine 1.11 Potassium 4.2 mmol/L 3.5-5.0 Sodium 137 mmol/L 135-145 eGFR 89.2 > 60 37 eGFR Non- 69.3 > 60 Laboratory test finding 07/04/2011 TSH 3.17 MIU/ML 0.34-5.60 1 M25.512 2 Method: Sediplast Modified Westergren 3 Recommend follow-up testing in 10-14 days if clinically indicated. ADDITIONAL INFORMATION In most populations, at least 90% of the adult population will have been infected with EBV sometime in the past and therefore, will be positive for anti-VCA/IgG and anti- EBNA. Antibodies to EBNA develop 6-8 weeks after primary infection and remain present for life. Presence of VCA/ IgM antibodies indicates recent primary infection with EBV. Test Performed by: [facility] [address] [place] [address] 4 Pourer: [id number] 5 E03.9,J20.9 6 Note: Persistent reduction for 3 months or more in an eGFR <60 mL/min/1.73 m2 defines CKD. Patients with eGFR values >/=60 mL/min/1.73 m2 may also have CKD if evidence of persistent proteinuria is present. The original MDRD equation for estimated GFR is not valid for patients less than 18 years of age. Additional information may be found at www.kdoqi.org. 7 Values below the stated reference ranges of AST and ALT can be seen in normal populations. Clinical correlation is suggested. 8 N95.1 9 NORMALLY MENSTRUATING FEMALES: Follicular Phase:............... 2.3-12.6 mIU/mL Mid-Cycle Peak:................. 5.2-17.5 mIU/mL Luteal Phase:................... 1.7-9.5 mIU/mL POSTMENOPAUSAL FEMALES: On menopausal hormone therapy (MHT)... 5.9-72.8 mIU/mL Not on MHT ........................... 0.7-10.8 mIU/mL 10 E03.9 11 OPERATION/PROCEDURE LTH, bilateral salpingectomy, cystoscopy DIAGNOSIS: "UTERUS, BILATERAL FALLOPIAN TUBES, HYSTERECTOMY AND BILATERAL SALPINGECTOMY ": - COMPLETELY TRANSECTED BILATERAL FIMBRIATED FALLOPIAN TUBES WITH NO SIGNIFICANT PATHOLOGIC ABNORMALITIES. - UTERINE CERVIX WITH NO SIGNIFICANT PATHOLOGIC ABNORMALITIES. - UTERINE CORPUS WITH PROLIFERATIVE ENDOMETRIUM AND A LEIOMYOMA. EP/clf 1126 GROSS Received in formalin in a properly labeled container with the patient's name and accession number designated, "UTERUS WITH CERVIX AND BILATERAL FALLOPIAN TUBES". The specimen consists of a 129 gram uterus with attached cervix and bilateral fallopian tubes. The specimen measures 9.5 cm. from fundus to exocervix, 8.0 cm. from cornu to cornu and 4.5 cm. from anterior to posterior. The left fimbriated fallopian tube measures 4.0 x 0.5 cm. and shows no discrete lesions. The right fimbriated fallopian tube measures 4.0 x 0.5 cm. and shows no discrete lesions. The serosal surface is grider-white and smooth. The exocervical mucosa is grider-white and smooth. Opening reveals a triangular endometrial cavity with hemorrhagic endometrial mucosa averaging 0.2 cm. in maximum thickness. A grider-white, whorled, rubbery nodule is present in the myometrium measuring 2.6 cm. in maximum dimension. No other discrete lesions are identified. News Operations Manager sections, six cassettes. EP/clf PRE OPERATIVE DIAGNOSIS Abnormal uterine and vaginal bleeding, leiomyoma of uterus. REVIEW CODE CODE: I Signed Electronically signed Justin MARINO MD [id number] 12 Approximate Gestational Age and Total BHCG Range: 0.2 - 1 Week........................5-50 mIU/mL 1 - 2 Weeks.....................50-500 mIU/mL 2 - 3 Weeks..................100-5,000 mIU/mL 3 - 4 Weeks.................500-10,000 mIU/mL 4 - 5 Weeks...............1,000-50,000 mIU/mL 5 - 6 Weeks.............10,000-100,000 mIU/mL 6 - 8 Weeks.............15,000-200,000 mIU/mL 2 - 3 Months............10,000-100,000 mIU/mL 13 QUERY: Reflex add FT3? N QUERY: Reflex add FT4? Y 14 FIRST MORNING SPECIMENS GENERALLY CONTAIN THE HIGHEST CONCENTRATION OF HCG AND ARE RECOMMENDED FOR EARLY DETECTION OF . 15 Positive: 5 of the following Borrelia-specific bands: 18,23,28,30,39,41,45,58, 66, and 93. Negative: No bands or banding patterns which do not meet positive criteria. 16 Note: An equivocal or positive EIA result followed by a negative Western Blot result is considered NEGATIVE. An equivocal or positive EIA result followed by a positive Western Blot is considered POSITIVE by the CDC. Positive: 2 of the following bands: 23,39 or 41 Negative: No bands or banding patterns which do not meet positive criteria. Criteria for positivity are those recommended by CDC/ASTPHLD. p23=Osp C, s75=ikvkyeiuc Note: Sera from individuals with the following may cross react in the Lyme Western Blot assays: other spirochetal diseases (periodontal disease, leptospirosis, relapsing fever, yaws, and pinta); connective autoimmune (Rheumatoid Arthritis and Systemic Lupus Erythematosus and also individuals with Antinuclear Antibody); other infections (Veteran Spotted Fever; Twan-Whitaker Virus, and Cytomegalovirus). Performed at: [facility] [id number] Pulp Screen Operator: Dodie Christopher MD, Phone: [phone] 17 Negative <1:80 Borderline 1:80 Positive >1:80 18 QUERY: Reflex add FT3? N QUERY: Reflex add FT4? Y 19 A low TSH should not be the sole basis for diagnosing primary hyperthyroidism, or primary hypopituitary function. Additional tests are suggested for confirmation. 20 Note: Persistent reduction for 3 months or more in an eGFR <60 mL/min/1.73 m2 defines CKD. Patients with eGFR values >/=60 mL/min/1.73 m2 may also have CKD if evidence of persistent proteinuria is present. The original MDRD equation for estimated GFR is not valid for patients less than 18 years of age. Additional information may be found at www.kdoqi.org. 21 Values below the stated reference ranges of AST and ALT can be seen in normal populations. Clinical correlation is suggested. 22 Values below the stated reference ranges of AST and ALT can be seen in normal populations. Clinical correlation is suggested. 23 SHIGA TOXIN 1 NOT DETECTED 24 SHIGA TOXIN 2 NOT DETECTED 25 Organism 1 ! NO ENTERIC PATHOGENS ISOLATED . ! ................................................... NOTE: ! INCLUDES TESTING FOR SALMONELLA, SHIGELLA, AEROMONAS, . ! PLESIOMONAS, CAMPYLOBACTER, AND E. COLI 0157:H7 . ! ................................................... . ! YERSINIA AND VIBRIO ARE NOT ROUTINELY SCREENED FOR AND . ! SHOULD BE REQUESTED SEPARATELY 26 NEGATIVE for Cryptosporidium by DFA Testing Performed by: [place] [address] 27 NEGATIVE for Giardia by DFA 28 NO OVA AND PARASITES SEEN BY CONCENTRATE EXAM 29 NO OVA OR PARASITES SEEN ON PERMANENT TRICHROME STAIN 30 Negative 0 - 19 Weak Positive 20 - 30 Moderate to Strong Positive >30 31 Negative 0 - 19 Weak Positive 20 - 30 Moderate to Strong Positive >30 32 Negative 0 - 3 Weak Positive 4 - 10 Positive >10 Tissue Transglutaminase ( tTG) has been identified as the endomysial antigen. Studies have demonstr- ated that endomysial IgA antibodies have over 99% specificity for gluten sensitive enteropathy. 33 Negative 0 - 5 Weak Positive 6 - 9 Positive >9 Performed at: - [facility] [address] [id number] Pulp Screen Operator: Dodie Christopher MD, Phone: [phone] [facility] [address] [place] [address], [address] [place] [address] GC / CHLAMYDIA REPORT Name: Smiley Estevez : 1970 (Age: 41) Sex: F Location: [facility] Soc. Sec. #: [id number] Date Collected: 04/04/2012 Billing #: [id number] Date Received: 04/05/2012 Physician(s): EDITH DEAN MD Source of Specimen: ThinPrep, APTIMA Results: Neisseria gonorrhoeae NEGATIVE Chlamydia trachomatis NEGATIVE Comment: This analysis was performed using second generation nucleic acid amplification testing (NAAT). Reported: 04/06/2012 Electronic Signature shabbir GUILLEN ([facility]) [facility] ICD-9 Codes: A: 616.10 35 Cytology Laboratory [address] [place] [address], [address] [place] [address] CYTOLOGY REPORT Name: Smiley Estevez : 1970 (Age: 41) Sex: F Location: [facility] Date Collected: 04/04/2012 Billing #: [id number] Date Received: 2011 Physician(s): EDITH DEAN MD Source of Specimen: ENDOCERVICAL/ ECTOCERVICAL THIN PREP Clinical Information: Date of Last Menstrual Period: 03/16/12 Menstrual History: Regular Specimen Adequacy: SATISFACTORY FOR EVALUATION. NO ENDOCERVICAL/TRANSFORMATION ZONE. General Categorization: NEGATIVE FOR INTRAEPITHELIAL LESION OR MALIGNANCY. tfn Electronic Signature JAVIER Pace (ASCP) Reported: 04/10/2012 Cytology Outreach [facility] ICD-9 Code(s) V72.31 36 Anion gap measurement may be of limited value in the presence of any alkalosis, especially in a combined acid base disorder. . 37 Because ethnic data is not always readily available, this report includes an eGFR for both -Americans and non- Americans. The National Kidney Disease Education Program (NKDEP) does not endorse the use of the MDRD equation for patients that are not between the ages of 18 and 70, are , have extremes of body size, muscle mass, or nutritional status, or are non- or non-. According to the National Kidney Foundation, irrespective of diagnosis, the stage of the disease is based on the level of kidney function: Stage Description GFR(mL/min/1.73 m(2)) 1 Kidney damage with normal or decreased GFR 90 2 Kidney damage with mild decrease in GFR 60- 89 3 Moderate decrease in GFR 30-59 4 Severe decrease in GFR 15-29 5 Kidney failure <15 (or dialysis) Procedures Date CPT Code Description Status 09/21/2018 75669 EKG-Tracing And Report Completed 05/24/2018 79152 Radiology, Shoulder: Two Views (Sso) Completed 05/24/2018 76496 Radiology, Shoulder: Two Views (Sso) Completed 05/24/2018 96926 Asp./Injection major joint Completed 01/31/2018 Mammogram Completed 11/02/2017 Asp./Injection major joint Completed 10/26/2017 Asp./Injection major joint Completed 10/19/2017 Asp./Injection major joint Completed 10/02/201777788 Asp./Injection major joint Completed 09/05/2017 36929 Chrondroplasty debridement/shaving of articular Completed cartilage 06/28/2017 Asp./Injection major joint Completed 05/18/2017 71361 Manipulation Shoulder W/Anesthesia W/Applic Fix Completed Apparatus 03/09/2017 50899 Manipulation Shoulder W/Anesthesia W/Applic Fix Completed Apparatus 07/29/201690441 Asp./Injection major joint Completed 06/08/2016 02858 Radiology, Knee 3 Views Completed 06/08/2016 77394 Radiology, Knee 3 Views Completed 06/08/2016 24165 Radiology, Shoulder: Two Views (Sso) Completed 06/08/2016 18658 Radiology, Shoulder: Two Views (Sso) Completed 06/08/201627845 Asp./Injection major joint Completed 02/08/2012 22987 Pressurized/Non-Pressurized Inhalation Treatment,Acute Completed Obstructio 11/11/1999 71778 Application short arm splint forearm to wrist static Completed 05/15/1993 18340 Vaginal Delivery W/Post- Care Completed 05/11/1993 20437 Non-Stress Test (NST) Completed 05/04/1993 90908 Non-Stress Test (NST) Completed 04/13/1993 73169 Non-Stress Test (NST) Completed 04/06/1993 82260 Non-Stress Test (NST) Completed Encounters Type Date Location Provider CPT E/M Dx Office Visit 09/21/2018 Primary Care Office Smiley Rizvi, [address] Z01.818 10:00a [facility] M47.12 M47.22 M06.9 F41.9 Office Visit 09/03/2018 1:00p Primary Care Office Smiley Rizvi [address] [facility] J01.90 Office Visit 07/17/2018 2:45p Primary Care Office Smiley Rizvi [address] [facility] M48.02 M06.9 Office Visit 06/19/2018 8:30a Primary Care Office Bentley Fontanez [address]2967 M25.512 MMercedez Office Visit 06/14/2018 10:15a [place] [address] M25.512 S16.1xxD X58.xxxD Office Visit 06/01/2018 3:30p [place] [address] M75.42 Office Visit 05/24/2018 4:30p [place] [address] M25.512 M25.412 Office Visit 05/10/2018 1:30p [place] [address] M06.9 M25.561 M25.461 Office Visit 04/10/2018 2:45p Primary Care Office Smiley Rizvi 34046 M06.9 RPAC F41.9 Office Visit 01/16/2018 1:00p Primary Care Office Smiely Rizvi 25605 Z00.00 RPA M06.9 M25.551 R53.83 Z12.31 Z12.72 Office Visit 11/01/2017 9:45a Primary Care Office Smiley Rizvi, 43448 J20.9 RPAC E03.9 Office Visit 10/02/2017 2:00p [place] [address] M06.9 M22.41 M25.561 M25.461 Office Visit 09/01/2017 10:45a Orthopaedic Office Prabhu Yoder M.D. 48411 M06.9 M25.561 Office Visit 07/17/2017 9:00a Primary Care Office Smiley Rizvi, 09170 N95.1 RPAC F41.9 Office Visit 06/15/2017 9:00a Primary Care Office Smiley Rizvi, 38613 M60.261 RPA N95.1 M06.9 Office Visit 05/24/2017 8:15a Orthopaedic Office Mita Shah 15833 M24.611 RPA Office Visit 04/17/2017 8:30a Orthopaedic Office Prabhu Yoder M.D. 82251 M25.511 M75.01 M24.611 Office Visit 04/04/2017 1:45p Primary Care Office Smiley Rizvi 11441 N95.1 RPAC R42 Office Visit 03/01/2017 9:30a Orthopaedic Office Prabhu Yoder M.D. 29643 M24.611 M25.511 Office Visit 02/14/2017 8:15a Orthopaedic Office Mita Shah, 29715 M25.511 RPAC V80.010A M75.41 Office Visit 01/16/2017 9:00a Primary Care Office Smiley Rizvi, 71624 M79.601 RPAC M79.7 Office Visit 12/16/2016 9:30a Primary Care Office Smiley Rizvi, 26568 E03.9 RPAC M50.00 Office Visit 10/13/2016 10:45a Primary Care Office Smiley Rizvi, 11809 M47.812 RPAC F41.9 M62.838 E03.9 Office Visit 10/05/2016 10:00a Orthopaedic Office Murtaza Nugent M.D. 12047 M25.511 M22.41 Office Visit 09/15/2016 8:30a Orthopaedic Office Mita Shah, 93136 V80.010A RPAC M25.561 Office Visit 07/29/2016 8:45a Orthopaedic Office Mita Shah, 61059 M25.561 RPAC M25.511 M75.51 V80.010A Office Visit 06/08/2016 1:30p Orthopaedic Office Mita Shah, 37624 M25.511 RPAC M25.561 M75.51 V80.010A Office Visit 05/30/2016 2:00p [facility] [place] [place] [address] M25.561 RPAC M25.511 M62.838 Office Visit 02/22/2016 1:45p Primary Care Office Colette Rizviaret, 60632 J20.9 RPAC Office Visit 12/22/2015 1:30p Primary Care Office Noy Rizvit, 70630 N93.9 RPAC N80.0 E03.9 Z01.818 Office Visit 09/18/2015 11:00a Primary Care Office Dmitri Smiley, 50917 M25.50 RPAC Office Visit 07/31/2015 9:30a Primary Care Office Smiley Rizvi, [address] [facility] N95.1 E03.9 Z23 Office Visit 06/19/2015 11:30a Primary Care Office Smiley Rizvi, [address] [facility] 466.0 Office Visit 05/26/2015 2:15p Primary Care Office Smiley Rizvi, [address] [facility] Office Visit 03/02/2015 1:00p Family Medicine Smiley Rizvi, [address] [facility] 309.81 564.5 Plan of Care 09/21/2018 - Smiley Rizvi, RPACZ01.818 Encounter for other preprocedural examinationComments:Medically clear for proposed idyjhpaajI92.12 Other spondylosis with myelopathy, cervical bolhxeZ70.22 Other spondylosis with radiculopathy, cervical xmzwdaC75.9 Rheumatoid arthritis, unspecifiedComments: Seronegative. Following with Dr Enrique medications will be held (Orencia SQ weekly, Celebrex 200mg BID) for the surgery Discussed oxycodone/APAP useF41.9 Anxiety disorder, unspecifiedComments:Current tx: Buspirone 15mg 1/2 - 1 tab TID prn, Clonazepam 1mg BID prn, Escitalopram 20mg 1 tab daily ReassuranceAllComments:Unable to produce a urine sample...has PAT pending with [facility]
--- OUTSIDE RECORDS SUMMARY | 2018-10-11 05:47 | XMS REPORT ---
:1970 External Reference #:[id number] Author Organization [facility] Address [address], [address] [place] [address] Phone [phone] Care Team Providers Name Role Phone Smiley Rizvi RPAC Care Team Information Supervisor [employer] Unavailable Smiley Rizvi RPAC Primary Care Physician Unavailable Payers Type Date Identification Numbers Payment Provider Subscriber Commercial Effective: Policy Number: Tyron Estevez 2013 [id number] Group Name: [facility] [address] [address] PayID: [id number] AMMON Don [address] Workers Compensation Policy Number: LUCY Reis [id number] Deal Dec[employer] Zenaida PayID: [id number] [address] [place] [address] Problems Date Description Provider Status Onset: 11/24/2014 [...] Onset: 10/06/2016 Degenerative [facility] Note: cervical spine, knee Onset: 04/17/2017 Adhesive capsulitis of shoulder Prabhu Yoder M.D. Active Note: right Onset: 06/28/2017 Knee pain Prahbu Yoder M.D. Active Onset: 07/11/2017 Fibromyalgia Smiley Rizvi [facility] Active Onset: 10/02/2017 Knee joint effusion Jennifer Lowe PA Active Onset: 01/16/2018 Arthralgia of the pelvic region and Smiley Rizvi [facility] Active thigh Onset: 01/16/2018 Malaise and fatigue Smiley Rizvi [facility] Active Family History Date Family Member(s) Problem(s) Comments Father Hypertension Father Hypercholesterolemia Father Diabetes Father Gastroesophageal Reflux Disease (GERD) Mother Diabetes Mother Hypercholesterolemia Mother Hypertension Social History Type Date Description Comments Lives With Diet Healthy, Well Balanced 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 11/22 one tab by mouth daily [place] 10/02 Hx Tablets 5-325mg 20tab 1 by mouth Paresh, s every 6 Prabhu, - hour as M.D. 10/19 needed pain Tramadol HCL 09/08 Hx Tablets 50mg 60tab 1-2 by Reinaldo, s mouth every Gustavo, - 6 hours as M.D. 06/14 needed pain :::: Reference #: [id number] Oxycodone HCL 09/01 Hx Tablets 10mg 30tab 1 by mouth Paresh, s every 4-6 Prabhu, hour as M.D. needed postop pain Estradiol 07/17 Hx Tablets 1mg 90tab 1 by mouth N95.1 Reinaldo, s every day Alvin ChenDFrank 01/16 Humira Pen 07/07 Hx PNKT 40mg/0.8M 40mg SQ q Yvonne L 2 wks, Rupali wilson MD 10/19 [...] Gel 1% 100gm Apply 2 to M79.7 Reinaldo, 4 grams to Gustavo, - affected M.D. [...] Influenza Vaccine (Fluzone) Age 3 And Older [id number] Given 08/07/2013 flu vaccination 44797 Given 11/15/2009 DTaP Vaccine Younger Than 7 [...] kg/m2 BSA (Body Surface Area) 2.06 m2 [place] body weight in kilograms 61 O2 % BldC Oximetry 98 % Ra 06/14/2018 BP Systolic Sitting Left Arm 126 mmHg BP Diastolic Sitting Left Arm 78 mmHg Body Temperature 97.3 F Height 67 inches 5'7" Weight 209.00 lb BMI (Body Mass Index) 32.7 kg/m2 BSA (Body Surface Area) 2.06 m2 [place] body weight in kilograms 61 06/01/2018 BP Systolic Sitting Left Arm 104 mmHg BP Diastolic Sitting Left Arm 71 mmHg Body Temperature 97.6 F Heart Rate 85 /min Respiratory Rate 17 /min Height 67 inches 5'7" Weight 211.00 lb BMI (Body Mass Index) 33.0 kg/m2 BSA (Body Surface Area) 2.07 m2 [place] body weight in kilograms 61 O2 % BldC Oximetry 97 % 05/24/2018 BP Systolic Sitting Left Arm 119 mmHg BP Diastolic Sitting Left Arm 87 mmHg Body Temperature 97.5 F Heart Rate 95 /min Respiratory Rate 17 /min Height 67 inches 5'7" Weight 206.00 lb BMI (Body Mass Index) 32.3 kg/m2 BSA (Body Surface Area) 2.05 m2 [place] body weight in kilograms 61 O2 % BldC Oximetry 98 % 05/10/2018 BP Systolic Sitting Left Arm 103 mmHg BP Diastolic Sitting Left Arm 73 mmHg Body Temperature 98.0 F Heart Rate 74 /min Respiratory Rate 17 /min Height 67 inches 5'7" Weight 206.00 lb BMI (Body Mass Index) 32.3 kg/m2 BSA (Body Surface Area) 2.05 m2 [place] body weight in kilograms 61 O2 % BldC Oximetry 97 % 04/10/2018 BP Systolic Sitting Right Arm 102 mmHg BP Diastolic Sitting Right Arm 68 mmHg Body Temperature 97.0 F Heart Rate 66 /min reg Respiratory Rate 20 /min Height 67 inches 5'7" Weight 202.00 lb BMI (Body Mass Index) 31.6 kg/m2 BSA (Body Surface Area) 2.03 m2 [place] body weight in kilograms 61 O2 % BldC Oximetry 98 % ra 01/16/2018 BP Systolic Sitting Left Arm 102 mmHg BP Diastolic Sitting Left Arm 58 mmHg Heart Rate 75 /min Height 67 inches 5'7" Weight 204.00 lb BMI (Body Mass Index) 31.9 kg/m2 BSA (Body Surface Area) 2.04 m2 [place] body weight in kilograms 61 O2 % BldC Oximetry 98 % ra 11/02/2017 BP Systolic Sitting Right Arm 102 mmHg BP Diastolic Sitting Right Arm 70 mmHg Heart Rate 81 /min Height 67 inches 5'7" Weight 202.00 lb BMI (Body Mass Index) 31.6 kg/m2 BSA (Body Surface Area) 2.03 m2 [place] body weight in kilograms 61 11/01/2017 BP Systolic Sitting Right Arm 102 mmHg BP Diastolic Sitting Right Arm 64 mmHg Body Temperature 96.6 F Heart Rate 77 /min Height 67 inches 5'7" Weight 202.00 lb BMI (Body Mass Index) 31.6 kg/m2 BSA (Body Surface Area) 2.03 m2 [place] body weight in kilograms 61 O2 % BldC Oximetry 98 % ra 10/26/2017 BP Systolic Sitting Left Arm 114 mmHg BP Diastolic Sitting Left Arm 73 mmHg Body Temperature 97.4 F Heart Rate 81 /min Respiratory Rate 20 /min Height 67 inches 5'7" Weight 200.00 lb BMI (Body Mass Index) 31.3 kg/m2 BSA (Body Surface Area) 2.02 m2 [place] body weight in kilograms 61 10/16/2017 BP [...] kg/m2 BSA (Body Surface Area) 1.99 m2 [place] body weight in kilograms 62 O2 % BldC Oximetry 98 % 05/24/2017 BP Systolic Sitting Right Arm 105 mmHg BP Diastolic Sitting Right Arm 71 mmHg Heart Rate 72 /min Height 67.5 inches 5'7.50" Weight 190.00 lb BMI (Body Mass Index) 29.3 kg/m2 BSA (Body Surface Area) 1.99 m2 [place] body weight in kilograms 62 05/10/2017 BP Systolic Sitting Right Arm 113 mmHg BP Diastolic Sitting Right Arm 74 mmHg Heart Rate 79 /min Height 6.5 inches 0'6.50" Weight 190.00 lb BMI (Body Mass Index) 3161.4 kg/m2 BSA (Body Surface Area) 0.36 m2 [place] body weight in kilograms 45 04/04/2017 BP Systolic Sitting Right Arm 124 mmHg BP Diastolic Sitting Right Arm 68 mmHg Height 66.5 inches 5'6.50" Weight 189.25 lb BMI (Body Mass Index) 30.1 kg/m2 BSA (Body Surface Area) 1.96 m2 [place] body weight in kilograms 60 03/15/2017 BP Systolic 101 mmHg BP Diastolic 67 mmHg Body Temperature 95.3 F Heart Rate 74 /min Height 66.5 inches 5'6.50" Weight 191.00 lb BMI (Body Mass Index) 30.4 kg/m2 BSA (Body Surface Area) 1.97 m2 [place] body weight in kilograms 60 03/02/2017 BP Systolic Sitting Left Arm 114 mmHg BP Diastolic Sitting Left Arm 78 mmHg Height 67.5 inches 5'7.50" Weight 200.00 lb BMI (Body Mass Index) 30.9 kg/m2 BSA (Body Surface Area) 2.03 m2 [place] body weight in kilograms 62 01/16/2017 BP [...] kg/m2 BSA (Body Surface Area) 2.05 m2 [place] body weight in kilograms 62 05/30/2016 BP [...] 1 Lymph % 38.0 % 20.0-42.0 1 [place] % 7.1 % 4.3-13.2 1 Eo% 1.6 % 0.0-6.6 1 Bas% 0.3 % 0.0-1.1 1 Neut# 3.30 K/uL 1.8-7.0 1 Lymph # 2.37 K/uL 1.0-4.0 1 [place] # 0.44 K/uL 0.3-0.9 1 Eos # [...] 5 Lymph % 33.1 % 20.0-42.0 5 [place] % 8.1 % 4.3-13.2 5 Eo% 2.5 % 0.0-6.6 5 Bas% 0.6 % 0.0-1.1 5 Neut# 2.87 K/uL 1.8-7.0 5 Lymph # 1.71 K/uL 1.0-4.0 5 Yolo # 0.42 K/uL 0.3-0.9 5 Eos # [...] 8 Lymph % 29.0 % 20.0-42.0 8 [place] % 11.3 % 4.3-13.2 8 Eo% 1.3 % 0.0-6.6 8 Bas% 0.3 % 0.0-1.1 8 Neut# 3.48 K/uL 1.8-7.0 8 Lymph # 1.74 K/uL 1.0-4.0 8 Yolo # 0.68 K/uL 0.3-0.9 8 Eos # [...] % 40.4-72.8 Lymph % 33.7 % 17.0-46.1 [place] % 6.1 % 4.3-13.2 Eo% 1.3 % 0.0-6.6 Bas% 0.6 % 0.0-1.1 Neut# 4.14 K/uL 1.0-7.0 Lymph # 2.39 K/uL 1.8-7.0 Yolo # 0.43 K/uL 0.3-0.9 Eos # 0.09 [...] - Dipstick Negative mg/dL Negative Urine Specific Luana <=1.005 Low 1.010-1.030 Urine Urobilinogen - Dipstick [...] 30.8-34.3 Mean Platelet Volume 10.9 fL 8.9-12.4 Yolo # 0.56 K/uL 0.3-0.9 Yolo % 6.5 % 4.3-13.2 Neut# 6.72 K/uL [...] primary infection with EBV. Test Performed by: [facility] [address] [place] [address] 4 Teacher Of The Deaf/Hard Of Hearing: [id number] E03.9,J20.9 6 Note: Persistent reduction for [...] dimension. No other discrete lesions are identified. Software Engineer Backend sections, six cassettes. EP/clf PRE OPERATIVE DIAGNOSIS [...] are those recommended by CDC/ASTPHLD. p23=Osp C, b43=xiqsfbcig Note: Sera from individuals with the following may cross react in the Lyme Western Blot assays: other spirochetal diseases (periodontal disease, leptospirosis, relapsing fever, yaws, and pinta); connective autoimmune (Rheumatoid Arthritis and Systemic Lupus Erythematosus and also individuals with Antinuclear Antibody); other infections ([place] Spotted Fever; Twan-Whitaker Virus, and Cytomegalovirus). Performed at: [facility] [id number] Radioisotope Technologist: Dodie Christopher MD, Phone: [phone] Negative <1:80 Borderline 1:80 Positive >1:80 [...] Cryptosporidium by DFA Testing Performed by: [place] [address] 27 NEGATIVE for Giardia by DFA 28 [...] 9 Positive >9 Performed at: - [facility] [address] [id number] Radioisotope Technologist: Dodie Christopher MD, Phone: [phone] [facility] [address] [place] [address], [address] [place] [address] GC / CHLAMYDIA REPORT Name: Smiley Estevez : 1970 (Age: 41) Sex: F Location: [facility] Soc. Sec. #: [id number] Date Collected: 04/04/2012 Billing #: [id number] Date Received: 04/05/2012 Physician(s): EDITH DEAN MD Source of Specimen: ThinPrep, APTIMA Results: Neisseria gonorrhoeae NEGATIVE Chlamydia trachomatis NEGATIVE Comment: This analysis was performed using second generation nucleic acid amplification testing (NAAT). Reported: 04/06/2012 Electronic Signature shabbir GUILLEN ([facility]) [facility] Technical Laboratory [facility] ICD-9 Codes: A: 616.10 35 Cytology Laboratory [address] [place] [address], [address] [place] [address] CYTOLOGY REPORT Name: Smiley Estevez : 1970 (Age: 41) Sex: F Location: [facility] Date Collected: 04/04/2012 Billing #: [id number] Date Received: 2011 Physician(s): EDITH DEAN MD Source of Specimen: ENDOCERVICAL/ ECTOCERVICAL THIN PREP Clinical Information: Date of Last Menstrual Period: 03/16/12 Menstrual History: Regular Specimen Adequacy: SATISFACTORY FOR EVALUATION. NO ENDOCERVICAL/TRANSFORMATION ZONE. General Categorization: NEGATIVE FOR INTRAEPITHELIAL LESION OR MALIGNANCY. tfn Electronic Signature JAVIER Pace (ASCP) Reported: 04/10/2012 Cytology Outreach [facility] ICD-9 Code(s) V72.31 36 Anion gap measurement [...] dialysis) Procedures Date CPT Code Description Status 05/24/2018 97685 Radiology, Shoulder: Two Views (Sso) Completed 05/24/2018 46156 Radiology, Shoulder: Two Views (Sso) Completed 05/24/2018 Asp./Injection major joint Completed 01/31/2018 Mammogram Completed 11/02/2017 06408 Asp./Injection major joint Completed 10/26/201742319 Asp./Injection major joint Completed 10/19/201799224 Asp./Injection major joint Completed 10/02/201777791 Asp./Injection major joint Completed 09/05/2017 53142 Chrondroplasty debridement/shaving of articular Completed cartilage 06/28/201703173 Asp./Injection major joint Completed 05/18/2017 53600 Manipulation Shoulder W/Anesthesia W/Applic Fix Completed Apparatus 03/09/2017 92806 Manipulation Shoulder W/Anesthesia W/Applic Fix Completed Apparatus 07/29/201618542 Asp./Injection major joint Completed 06/08/2016 01889 Radiology, Knee 3 Views Completed 06/08/2016 06252 Radiology, Knee 3 Views Completed 06/08/2016 68467 Radiology, Shoulder: Two Views (Sso) Completed 06/08/2016 71454 Radiology, Shoulder: Two Views (Sso) Completed 06/08/2016 74619 Asp./Injection major joint Completed 02/08/2012 78799 Pressurized/Non-Pressurized Inhalation Treatment,Acute Completed Obstructio 11/11/1999 93972 Application short arm splint forearm to wrist static Completed 05/15/1993 36958 Vaginal Delivery W/Post- Care Completed 05/11/1993 15498 Non-Stress Test (NST) Completed 05/04/1993 15121 Non-Stress Test (NST) Completed 04/13/1993 01381 Non-Stress Test (NST) Completed 04/06/1993 04344 Non-Stress Test (NST) Completed Encounters Type Date Location Provider CPT E/M Dx Office Visit 09/03/2018 1:00p Primary Care Office Smiley Rizvi 04234 J20.9 [facility] J01.90 Office Visit 07/17/2018 2:45p Primary Care Office Smiley Rizvi 97558 F41.9 [facility] M48.02 M06.9 Office Visit 06/19/2018 8:30a Primary Care Office Bentley Fontanez 00813 M25.512 M.DFrank Office Visit 06/14/2018 10:15a [place] [address] M25.512 S16.1xxD X58.xxxD Office Visit 06/01/2018 3:30p [place] [address] M75.42 Office Visit 05/24/2018 4:30p [place] [address] M25.512 M25.412 Office Visit 05/10/2018 1:30p [place] [address] M06.9 M25.561 M25.461 Office Visit 04/10/2018 2:45p Primary Care Office Smiley Rizvi, 33755 M06.9 RPAC F41.9 Office Visit 01/16/2018 1:00p Primary Care Office Smiley Rizvi, 39210 Z00.00 RPAC M06.9 M25.551 R53.83 Z12.31 Z12.72 Office Visit 11/01/2017 9:45a Primary Care Office Smiley Rizvi, 22950 J20.9 RPAC E03.9 Office Visit 10/02/2017 2:00p [place] [address] M06.9 M22.41 M25.561 M25.461 Office Visit 09/01/2017 10:45a Orthopaedic Office Prabhu Yoder M.D. 33211 M06.9 M25.561 Office Visit 07/17/2017 9:00a Primary Care Office Smiley Rizvi, 15497 N95.1 RPA F41.9 Office Visit 06/15/2017 9:00a Primary Care Office Smiley Rizvi, 27380 M60.261 RPA N95.1 M06.9 Office Visit 05/24/2017 8:15a Orthopaedic Office Mita Shah, 90783 M24.611 RPA Office Visit 04/17/2017 8:30a Orthopaedic Office Prabhu Yoder M.D. 42142 M25.511 M75.01 M24.611 Office Visit 04/04/2017 1:45p Primary Care Office [place] Smiley, 12566 N95.1 RPA R42 Office Visit 03/01/2017 9:30a Orthopaedic Office Prabhu Yoder M.D. 46382 M24.611 M25.511 Office Visit 02/14/2017 8:15a Orthopaedic Office Mita Shah, 68649 M25.511 RPAC V80.010A M75.41 Office Visit 01/16/2017 9:00a Primary Care Office Smiley iRzvi, 08085 M79.601 RPAC M79.7 Office Visit 12/16/2016 9:30a Primary Care Office Smiley Rizvi, 11652 E03.9 RPAC M50.00 Office Visit 10/13/2016 10:45a Primary Care Office Smiley Rizvi, 33342 M47.812 RPAC F41.9 M62.838 E03.9 Office Visit 10/05/2016 10:00a Orthopaedic Office Murtaza Nugent M.D. 10779 M25.511 M22.41 Office Visit 09/15/2016 8:30a Orthopaedic Office Mita Shah, 35840 V80.010A RPAC M25.561 Office Visit 07/29/2016 8:45a Orthopaedic Office Mita Shah., 73191 M25.561 RPAC M25.511 M75.51 V80.010A Office Visit 06/08/2016 1:30p Orthopaedic Office Mita Shah., 98481 M25.511 RPAC M25.561 M75.51 V80.010A Office Visit 05/30/2016 2:00p Primary Care Office Smiley Rizvi, 70260 M25.561 RPAC M25.511 M62.838 Office Visit 02/22/2016 1:45p Primary Care Office Smiley Rizvi, 60789 J20.9 RPAC Office Visit 12/22/2015 1:30p Primary Care Office Smiley Rizvi, 66184 N93.9 RPAC N80.0 E03.9 Z01.818 Office Visit 09/18/2015 11:00a Primary Care Office Smiley Rizvi, 27559 M25.50 RPAC Office Visit 07/31/2015 9:30a Primary Care Office Smiley Rizvi, 66969 M70.62 RPAC N95.1 E03.9 Z23 Office Visit 06/19/2015 11:30a Primary Care Office Smiley Rizvi, 96160 461.9 RPAC 466.0 Office Visit 05/26/2015 2:15p Primary Care Office Smiley Rizvi, 07490 729.2 [facility] Office Visit 03/02/2015 1:00p Family Medicine Smiley Rizvi, 12989 309.81 [facility] 309.81 564.5 Plan of Care 09/21/2018 - Smiley Rizvi, RPACZ01.818 Encounter for other preprocedural examinationComments:Medically clear for proposed okmvvodhsS06.12 Other spondylosis with myelopathy, cervical eursjjA07.22 Other spondylosis with radiculopathy, cervical husizjJ61.9 Rheumatoid arthritis, unspecifiedComments: Seronegative. Following with Dr Enrique medications will be held (Orencia SQ weekly, Celebrex 200mg BID) for the surgery Discussed oxycodone/APAP useF41.9 Anxiety disorder, unspecifiedComments:Current tx: Buspirone 15mg 1/2 - 1 tab TID prn, Clonazepam 1mg BID prn, Escitalopram 20mg 1 tab daily ReassuranceAllComments:Unable to produce a urine sample...has PAT pending with Arnol
[2018-10-11] MEDS ORDERED: Sodium Citrate/Citric Acid* 15 ML UDC PO ONE (06:00)
[2018-10-11] MEDS ORDERED: Morphine PCA ADULT* 5 MG/ML 30 ML ONE (06:13)
[2018-10-11] MEDS ORDERED: oxyCODONE SR TAB(*) 10 MG TAB.SR ONE (06:22)
[2018-10-11] MEDS ORDERED: Sodium Citrate/Citric Acid* 15 ML UDC ONE (06:22)
[2018-10-11] MEDS ORDERED: Morphine VIAL* 10 MG/ML 1 ML VIAL ONE (06:22)
[2018-10-11] MEDS ORDERED: Thrombin 5,000 UNITS* 1 APPLIC KIT - topical use - TOPICAL ONE (06:42)
[2018-10-11] MEDS ORDERED: Lidocaine 1% MPF wEPI 200,000* 30 ML SDV ONE (06:42)
[2018-10-11] MEDS ORDERED: Bacitracin IV* 50,000 UNITS INJ ONE (06:43)
[2018-10-11] MEDS ORDERED: Scopolamine 1.5 mg* PATCH ONE (07:25)
[2018-10-11] MEDS ORDERED: fentaNYL* 50 MCG/ML 2 ML VIAL (100 MCG VIAL) ONE ×4 (07:32→11:35)
[2018-10-11] MEDS ORDERED: Midazolam* 1 MG/ML 2 ML VIAL (2 MG) ONE (07:32)
[2018-10-11] MEDS ORDERED: Rocuronium* 10 MG/ML VIAL ONE ×2 (07:33→08:53)
[2018-10-11] MEDS ORDERED: Lidocaine 2% PF * 5 ML VIAL ONE (07:33)
[2018-10-11] MEDS ORDERED: Scopolamine 1.5 mg* PATCH TRANSDERM SCH (08:00)
[2018-10-11] MEDS ORDERED: Dexamethasone IV* 4 MG/ML 1 ML (4 MG) ONE (08:45)
[2018-10-11] MEDS ORDERED: Propofol* 10 MG/ML 20 ML BTL ONE (08:56)
[2018-10-11] MEDS ORDERED: Naloxone* 0.4 MG/ML 1 ML VIAL IV PRN (09:18)
[2018-10-11] MEDS ORDERED: Neostigmine Methylsulfate* 2 MG/2 ML SYRINGE ONE (10:53)
[2018-10-11] MEDS ORDERED: Glycopyrrolate IV* 0.2 MG/ML 1 ML VIAL ONE (10:53)
[2018-10-11] MEDS: fentaNYL* 50 MCG/ML 2 ML VIAL (100 MCG VIAL) IV PRN ×4 (11:17→12:03)
[2018-10-11] MEDS ORDERED: Acetaminophen TAB* 325 MG PO PRN (12:02)
[2018-10-11] MEDS ORDERED: Magnesium Hydroxide LIQ* 30 ML UDC PO PRN (12:02)
[2018-10-11] MEDS ORDERED: clonazePAM TAB(*) 1 MG PO PRN (12:05)
[2018-10-11] MEDS ORDERED: busPIRone TAB* 5 MG PO PRN (12:05)
[2018-10-11] MEDS ORDERED: Benzocaine/Menthol LOZ* 1 LOZENGE PO PRN (12:06)
[2018-10-11] MEDS: HYDROcodone/ACETAMIN 5-325 MG* 1 TAB PO PRN ×3 (13:36→22:03)
[2018-10-11] MEDS: Cyclobenzaprine TAB* 10 MG PO PRN ×2 (15:12→23:14)
[2018-10-11] MEDS ORDERED: Citalopram TAB* 40 MG PO SCH (21:00)
[2018-10-12] MEDS: HYDROcodone/ACETAMIN 5-325 MG* 1 TAB PO PRN ×2 (02:07→06:08)
[2018-10-12] MEDS ORDERED: Levothyroxine TAB* 88 MCG TAB PO SCH (06:00)
[2018-10-12 07:59] VITALS: BP 115/73
[2018-10-12] MEDS: Cyclobenzaprine TAB* 10 MG PO PRN (08:08)
--- NOTE | 2018-10-12 09:24 | OP ---
DATE OF OPERATION: 10/11/18 - ROOM #343 DATE OF : 70 SURGEON: Letty Kulkarni MD. FEDERAL JAVA DEVELOPER: WENCESLAO Rivers. The case was done with the assistance of the surgical PA because of the complexity of the case. PRE-OP DIAGNOSIS: Degenerative disk disease, myelopathy, and radiculopathy. POST-OP DIAGNOSIS: Degenerative disk disease, myelopathy, and radiculopathy. OPERATIVE PROCEDURE: The patient underwent anterior cervical diskectomy and fusion at C3-4 and C4-5 level with PEEK interbody cage with local autologus bone graft and DBX, and anterior instrumentation with titanium plates and screws. SUMMARY: The patient is a very pleasant 47-year-old female with complaints of neck pain radiating to the left upper extremity with symptoms of cervical myelopathy and MRI findings consistent with degenerative disk disease at C3-4 and C4-5. The patient after failing conservative modalities, she was offered the option of surgical intervention in the form of anterior cervical diskectomy and fusion after explaining the expectation, limitations, possible complications of the procedure had been explained and discussed with the patient with with complications including but not limited to bleeding, infection , risk of injury to the adjacent structures, paralysis, , need for additional procedure, anesthesia risk, stroke, blindness, cancer, instability, hardware failure, adjacent level disease, pseudoarthrosis, recurrent laryngeal nerve injury with vocal cord paralysis, Cynthia syndrome, need for prolonged ICU stay, tracheostomy or gastrostomy. The patient was agreeable to proceed with surgery. Informed consent was obtained. The same was discussed in the presence of her . Both patient and her understood that her condition may not improve, in fact may get worse after surgery and she may need to have additional procedures in the future. They also understood that the operative plan may be modified according to intraoperative findings and conditions and that she may need to have additional procedures in the future and the case can be staged or abandoned or modified. DESCRIPTION OF PROCEDURE: The patient was brought to the operating room, was placed under general anesthesia by the anesthesia team. She was carefully positioned supine and all bony prominences were meticulously padded. Her skin was prepped and draped in a standard fashion. After appropriate surgical pause and patient identification, a right paramedian transverse incision was marked on the skin using intraoperative fluoroscopic imaging and after infiltrating the skin with local anesthetic a #10 surgical blade was used to incise the skin. Incision was carried down to the platysma with Bovie cautery and the skin was gently undermined. The platysma was divided with sharp dissection and Bovie and the platysma was gently undermined with tenotomy scissors. The plane between the medial border of the sternocleidomastoid and the medial structures was gently developed with the use of sharp and blunt dissection and intraoperative fluoroscopic imaging confirmed appropriate surgical level. Self- retaining retractors were introduced right into the field and standard diskectomy at C3-4 and C4-5 was performed after incising down the fibrosis with #15 surgical blade. Locally harvested bone graft was kept for the arthrodesis part of the procedure. The dissection was carried out with the use of pituitary rongeurs, Kerrison punches, curettes, and high speed drill. PEEK interbody cage was placed in each level after being after being filled with locally harvested bone graft and DBX. After confirmation of meticulous hemostasis, copious irrigation and meticulous inspection, ZEVO Medtronic titanium plate was placed and secured in place with titanium screws after removing the Kilo pins. After meticulous hemostasis confirmation and meticulous irrigation and meticulous inspection, the wound was closed in layers over a Norberto drain which was done through a separate stab wound incision incision; 2-0 undyed Vicryl sutures were used to approximate the platysma while the skin was approximated with the use of interrupted 2-0 Vicryl sutures. The skin was covered with Dermabond. At the end of the procedure, all counts were reported to be correct. The patient remained hemodynamically stable throughout case. I was present and scrubbed for the entirety of the case. The patient was then extubated and was transferred to recovery in excellent condition. The case was done with the assistance of surgical PA because of the complexity of the case. [id number]/[facility] #: [id number] KHANH
--- NOTE | 2018-10-12 20:01 | PN ---
Progress Note - Progress Note Date of Service: 10/12/18 SOAP: Subjective: [] Patient seen earlier. No events ON. Tolerated procedure well yesterday. Tolerates po, Voids, Ambulates. Preop LUE pain improved. Objective: []VSS, Afebrile MJ collar Wound, s,c,d. Drain output noted. Drain was removed. Catheter appeared to be intact. Patient tolerated procedure well. AAOx3, BAY, CN II-XII grossly intact Motor 5/5 all extremities Sensory grossly intact to light touch. Assessment: []47 yof POD#1 ACDF Plan: []Monitor VS, Neurochecks Encourage ambulation. DC today. Full instructions were given to the patient and her sister. Venkatesh Kulkarni MD
== END 2018-10-12 10:05 | disposition home or self-care (01) | DRG 321 ==
LOC: AA 05:43 → SSU 12:02
PROVIDERS: ADMIT Neurological Surgery; ATTEND Neurological Surgery
PROC: 0RB30ZZ Excision of Cervical Vertebral Disc, Open Approach (ICD-10-PCS; 2018-10-11)
PROC: 0RG20A0 Fusion of 2 or more Cervical Vertebral Joints with Interbody Fusion Device, Anterior Approach, Anterior Column, Open Approach (ICD-10-PCS; principal; 2018-10-11 07:30)
DX: M47.12 Other spondylosis with myelopathy, cervical region (principal); M50.01 Cervical disc disorder with myelopathy, high cervical region; M47.22 Other spondylosis with radiculopathy, cervical region; E03.9 Hypothyroidism, unspecified; M06.9 Rheumatoid arthritis, unspecified; F41.9 Anxiety disorder, unspecified; G60.9 Hereditary and idiopathic neuropathy, unspecified; I45.10 Unspecified right bundle-branch block; M48.02 Spinal stenosis, cervical region; M22.40 Chondromalacia patellae, unspecified knee; M79.7 Fibromyalgia; Z98.51 Tubal ligation status; Z83.3 Family history of diabetes mellitus; Z82.49 Family history of ischemic heart disease and other diseases of the circulatory system; Z83.49 Family history of other endocrine, nutritional and metabolic diseases; Z87.891 Personal history of nicotine dependence; Z88.8 Allergy status to other drugs, medicaments and biological substances; Z88.2 Allergy status to sulfonamides
CPT/HCPCS: 72040; 76001; A9270-GY; C1713; C1776; C9359; J1100; J2001; J2250; J2270; J2704; J3010; J3370